=== PATIENT | female | born 1955 | race Caucasian/White ===

== ENCOUNTER 2017-03-07 10:18 | Inpatient (IN) | payer MEDICARE, MEDICAID ==
[~2017-03-07] VITALS: Ht 167.6 cm; Wt 41.3 kg
[~2017-03-07 10:18] MED LIST: ALBUAER3 INH; B-1250TA PO; FURO40TA PO; HYDR-3580 PO; IPRA17I INH; MORP-44 PO; OMEP20TA93 PO; PULM180I INH; SPIR50TA PO; TRAM50TA PO; XIFA550T4 PO
[2017-03-07] MEDS ORDERED: CHLORHEXIDINE GLUCONATE 2 % 1 PACK (2 CLOTHS) TOPICAL PRN (11:15)
[2017-03-07] MEDS ORDERED: LACTATED RINGER'S 1000 ML IV PRN (11:15)
[2017-03-07] MEDS ORDERED: METOPROLOL TARTRATE 25 MG TAB PO PRN (11:15)
[2017-03-07] MEDS ORDERED: SODIUM CHLORID 0.9% 500 ML IV PRN (11:15)
[2017-03-07] MEDS ORDERED: CHLORHEXIDINE GLUCONATE 4% SOLN 120 ML BTL TOPICAL SCH (11:30)
[2017-03-07] MEDS ORDERED: ceFAZolin 2 GM PREMIX 50 ML IV SCH (11:30)
[2017-03-07 11:38] LABS: BLOOD, URINE NEG (NEG); GLUCOSE,URINE NEG (NEG); KETONE, URINE 10 mg/dL (NEG); MUCUS URINE FEW /lpf (OCC); NITRITE,URINE NEG (NEG); PH, URINE 6.5 (5.0-8.5); URINE COLOR YELLOW (YELLW/STRAW); URINE LEUKOCYTE ESTERASE NEG (NEG)
[2017-03-07 11:40] LABS: AUTOMATED NEUTROPHIL # 1.9 TH/MM3 (1.8-7.7); BASOPHIL # 0.1 TH/MM3 (0-0.2); BASOPHIL % 1.7 % (0.0-2.0); EOSINOPHIL # 0.1 TH/MM3 (0-0.4); EOSINOPHIL % 2.5 % (0.0-4.0); HEMATOCRIT 29.2 % (35.0-46.0); HEMOGLOBIN 8.8 GM/DL (11.6-15.3); LYMPH % 28.1 % (9.0-44.0); MEAN CELL VOLUME 70.5 FL (80.0-100.0); MEAN CORPUSCULAR HEMOGLOBIN 21.3 PG (27.0-34.0); MEAN CORPUSCULAR HGB CONC 30.1 % (32.0-36.0); MEAN PLATELET VOLUME 8.8 FL (7.0-11.0); MONO % 13.9 % (0.0-8.0); MONOCYTE # 0.5 TH/MM3 (0-0.9); NEUT % 53.8 % (16.0-70.0); PLATELET COUNT 145 TH/MM3 (150-450); RED BLOOD COUNT 4.14 MIL/MM3 (4.00-5.30); WHITE BLOOD COUNT 3.5 TH/MM3 (4.0-11.0)
[2017-03-07 11:44] LABS: BILIRUBIN, URINE NEG (NEG)
[2017-03-07 11:48] LABS: INTERNATIONAL NORMALIZED RATIO 1.3 RATIO; PROTHROMBIN TIME - PATIENT 12.7 SEC (9.8-11.6)
[2017-03-07] MEDS ORDERED: MORP1TAB24 PO (11:49)
--- NOTE | 2017-03-07 11:54 | RADRPT ---
EXAM DATE/TIME: 03/07/2017 11:00 [facility] COMPARISON: CHEST SINGLE AP, August 02, 2012, 12:59. INDICATIONS : Evaluate for pneumonia, pneumothorax or communible disease Hip surgery MEDICAL HISTORY : Chronic obstructive pulmonary disease. SURGICAL HISTORY : None. ENCOUNTER: Initial ACUITY: 1 day PAIN SCORE: 0/10 LOCATION: Bilateral chest FINDINGS: A single view of the chest demonstrates the lungs to be symmetrically aerated without evidence of mas s, infiltrate or effusion. The cardiomediastinal contours are unremarkable. Osseous structures are intact. CONCLUSION: No acute disease. Dwayne Armas MD on March 07, 2017 at 11:51 Board Certified Radiologist. This report was verified electronically.
[2017-03-07] MEDS ORDERED: EXPAREL PERI-ARTICULAR INJECTION (TOTAL VOL. 60 ML) P-ARTICULR SCH ×2 (12:00)
[2017-03-07] MEDS ORDERED: TRANEXAMIC ACID 1 GM PRIOR TO PROCEDURE IV SCH ×2 (12:00)
--- NOTE | 2017-03-07 12:05 | RADRPT ---
EXAM DATE/TIME: 03/07/2017 11:24 [facility] COMPARISON: No previous studies available for comparison. INDICATIONS : Bilateral leg swelling. MEDICAL HISTORY : Congestive heart failure. Hypercholesterolemia. Hepatitis. HTN. COPD. Asthma. GERD. Ectopic . Herniated disc. Cirrhosis. Shingles. Depression. Tobacco use. SURGICAL HISTORY : Hysterectomy. Bilateral cataracts. Lumbar fusion L3-5. Left breast mass removal. Lumbar discectomy. ENCOUNTER: Initial ACUITY: 4 - 6 days PAIN SCORE: 9/10 LOCATION: Bilateral leg. TECHNIQUE: Venous ultrasound of the left and right leg was performed from the inguinal ligament to the proximal calf. Real-time, color Doppler and spectral tracing, compression and augmentation techniques were us ed. FINDINGS: RIGHT LEG: There is normal compressibility of the deep venous system from the inguinal region to the proximal ca lf. No echogenic clot is seen in the lumen of the common femoral, femoral, popliteal, and posterior tibial veins. There is a normal response of the venous system to proximal and distal augmentation an d respiration. LEFT LEG: There is normal compressibility of the deep venous system from the inguinal region to the proximal ca lf. No echogenic clot is seen in the lumen of the common femoral, femoral, popliteal, and posterior tibial veins. There is a normal response of the venous system to proximal and distal augmentation an d respiration. CONCLUSION: No evidence of deep venous thrombosis. Dwayne Armas MD on March 07, 2017 at 12:02 Board Certified Radiologist. This report was verified electronically.
--- NOTE | 2017-03-07 13:38 | PD.ORT.PN ---
Subjective Subjective Remarks worsening bilateral pitting edema Objective Vitals Vital Signs Date Time Temp Pulse Resp B/P (MAP) Pulse Ox O2 Delivery O2 Flow Rate FiO2 03/07/17 11:17 98.4 95 22 126/74 (91) 100 Result Diagram: 03/07/17 1125 Other Results Laboratory Tests Test 03/07/17 11:25 Prothromb Time International Ratio 1.3 RATIO Prothrombin Time 12.7 SEC (9.8-11.6) Imaging Last 24 hours Impressions Lower Extremity Ultrasound 03/07/17 1108 Signed Impressions: Service Date/Time: February 11:24 - CONCLUSION: No evidence of deep venous thrombosis. Dwayne Armas MD Chest X-Ray 03/07/17 1047 Signed Impressions: Service Date/Time: February 11:00 - CONCLUSION: No acute disease. Dwayne Armas MD Objective Remarks aaox3 labored breating on O2 NC nad BLE: nvi. bilateral pitting edema from the knee distally with areas of erythema. left hip wound healed. Assessment & Plan Assessment and Plan planned hip revision arthroplasty postpone by anesthesia. patient in mild respiratory distress on Oxygen, h/o COPD and liver cirrhosis. h/ o chronic morphine use. worsening pedal edema and respiratory function admit for medical optimization consult to pulmonary and hospitalist OR when cleared Alf Webster Jr., MD Mar 07, 2017 13:38
[2017-03-07] MEDS ORDERED: ONDANSETRON HCL 4 MG/2 ML VIAL IV PUSH PRN (13:45)
[2017-03-07] MEDS ORDERED: diphenhydrAMINE HCL 50 MG/ML VIAL IV PUSH PRN (13:45)
[2017-03-07] MEDS ORDERED: NALOXONE HCL 0.4 MG/ML AMP IV PUSH PRN (13:45)
[2017-03-07] MEDS ORDERED: ZOLPIDEM TARTRATE 5 MG TAB PO PRN (13:45)
[2017-03-07] MEDS ORDERED: ALBUTEROL SULFATE 90 MCG/ACT HFA 8 GM INHALER INH PRN (13:45)
[2017-03-07] MEDS ORDERED: MORPHINE SULFATE 30 MG PO PRN (13:45)
[2017-03-07] MEDS ORDERED: diphenhydrAMINE HCL 25 MG CAP PO PRN (13:45)
[2017-03-07] MEDS ORDERED: IPRATROPIUM BROMIDE 17 MCG/ACT 12.9 GM INHALER INH PRN (13:45)
[2017-03-07] MEDS ORDERED: MORPHINE SULFATE 30 MG CONTROLLED RELEASE TAB PO PRN (14:30)
[2017-03-07] MEDS: ACETAMINOPHEN/HYDROcodone 325 MG/5 MG TAB PO PRN ×2 (14:53→19:25)
[2017-03-07] MEDS ORDERED: TRANEXAMIC ACID 1 GM POST-OP IV SCH ×2 (15:00)
[2017-03-07 15:47] VITALS: BP 106/69; PULSE 93; RESP 19; TEMP 97.7; O2SAT 100
[2017-03-07] MEDS ORDERED: RESP: ALBUTEROL 2.5 MG/3 ML NEB (PRN) INH (16:45)
[2017-03-07] MEDS ORDERED: methylPREDNISolone SOD SUCC 125 MG/2 ML VIAL IV PUSH ONE (16:45)
--- NOTE | 2017-03-07 16:55 | PD.CONS ---
HPI Service [facility] Hospitalists Consult Requested By Ortho Reason for Consult Preop Medical optimization for COPD and lower extremity edema due to heart failure Primary Care Physician Shekhar Gordillo M.D. Diagnoses: History of Present Illness 61 years old female with history of liver failure last liver cirrhosis admitted for revision on hip surgery, patient was found to have +3 edema in the lower extremity, mild to moderate respiratory distress in the preop so surgery canceled in medical hospitalist were consulted for preoperative optimization, patient admitted continuing smoking a pack a day, with continuing short of breath greenish phlegm and cough, to me she denied being noncompliant with her eyes however I found at the bedside to back off snacks which contain 40 mg total of sodium, I extensively explained to her the need to eliminate sodium in her diet. She denied any chest pain abdominal pain nausea vomiting diarrhea or constipation, she all of with liver specialist in [place], she is not on any transplant list yet. No fever or chills, lower extremity ultrasound has been done and ruled out DVT, chest x-ray with no lung congestion Review of Systems All systems reviewed and was positive for what is mentioned in history of present illness otherwise negative Past Family Social History Allergies: Coded Allergies: MRI PRECAUTION (Verified Allergy, Severe, DIFF BREATHING, SWELLING TO ROOF OF MOUTH, 03/07/17) diatrizoate meglumine (Unverified Allergy, Severe, RASH, 03/07/17) gadobenic acid (Unverified Allergy, Severe, RASH, 03/07/17) gadodiamide (Unverified Allergy, Severe, RASH, 03/07/17) gadoteridol (Unverified Allergy, Severe, RASH, 03/07/17) iodixanol (Unverified Allergy, Severe, RASH, 03/07/17) iohexol (Unverified Allergy, Severe, RASH, 03/07/17) Past Medical History Liver cirrhosis Anemia COPD Actively smoker Past Surgical History Denied having previous surgery Family History Review with the patient,not aware of significant medical history runs in his family Social History Smoke one pack per day for 30 years denies alcohol abuse Physical Exam Vital Signs Vital Signs Date Time Temp Pulse Resp B/P (MAP) Pulse Ox O2 Delivery O2 Flow Rate FiO2 03/07/17 15:47 97.7 93 19 106/69 (81) 100 03/07/17 15:15 Nasal Cannula 3.00 03/07/17 11:17 98.4 95 22 126/74 (91) 100 Physical Exam GENERAL: This is a well-nourished, well-developed patient, in no apparent distress. SKIN: No rashes, warm and dry HEAD: Atraumatic. Normocephalic. EYES: Pupils equal round and reactive. Extraocular motions intact. No scleral icterus. ENT: Nose without bleeding, or drainage, Airway patent. NECK: Trachea midline. Supple CARDIOVASCULAR: Regular rate and rhythm without murmurs, gallops, or rubs. RESPIRATORY: Fair air entry bilaterally. No wheezes, rales, or rhonchi. GASTROINTESTINAL: Abdomen soft, non-tender, nondistended. Positive bowel sounds MUSCULOSKELETAL: Extremities without clubbing, cyanosis, +3 edema. Pedal pulses appreciated NEUROLOGICAL: Awake and alert. Moves all extremity. Normal speech.no focal neurological deficit Laboratory Laboratory Tests Test 03/07/17 11:15 03/07/17 11:25 Urine Color YELLOW Urine Turbidity CLEAR Urine pH 6.5 Urine Specific [place] 1.020 Urine Protein 30 Urine Glucose (UA) NEG Urine Ketones 10 Urine Occult Blood NEG Urine Nitrite NEG Urine Bilirubin NEG Urine Urobilinogen 8.0 Urine Leukocyte Esterase NEG Urine RBC LESS THAN 1 Urine WBC 1 Urine Mucus FEW Microscopic Urinalysis Comment CATH-CULT NOT IND White Blood Count 3.5 Red Blood Count 4.14 Hemoglobin 8.8 Hematocrit 29.2 Mean Corpuscular Volume 70.5 Mean Corpuscular Hemoglobin 21.3 Mean Corpuscular Hemoglobin Concent 30.1 Red Cell Distribution Width 22.0 Platelet Count 145 Mean Platelet Volume 8.8 Neutrophils (%) (Auto) 53.8 Lymphocytes (%) (Auto) 28.1 Monocytes (%) (Auto) 13.9 Eosinophils (%) (Auto) 2.5 Basophils (%) (Auto) 1.7 Neutrophils # (Auto) 1.9 Lymphocytes # (Auto) 1.0 Monocytes # (Auto) 0.5 Eosinophils # (Auto) 0.1 Basophils # (Auto) 0.1 CBC Comment DIFF FINAL Differential Comment Prothrombin Time 12.7 Prothromb Time International Ratio 1.3 Result Diagram: 03/07/17 1125 Imaging Last Impressions Lower Extremity Ultrasound 03/07/17 1108 Signed Impressions: Service Date/Time: February 11:24 - CONCLUSION: No evidence of deep venous thrombosis. Dwayne Armas MD Chest X-Ray 03/07/17 1047 Signed Impressions: Service Date/Time: February 11:00 - CONCLUSION: No acute disease. Dwayne Armas MD Assessment and Plan Assessment and Plan Patient admitted for orthopedic surgery however every 2 bilateral lower extremity edema due to heart failure medical service consulted for optimization COPD exacerbation Lower extremity edema due to heart failure Liver cirrhosis Hypochromic microcytic anemia Thrombocytopenia Mostly component of noncompliance DVTprophylaxis Recommendation We'll start providing oxygen, DuoNeb, Solu-Medrol Check sputum culture, will start Zithromax Agree with pulmonary consult Extensive counseling about smoking cessation has been provided We'll switch to Lasix by mouth to iv 40 mg twice a day, after drawing stat BMP now Continue Aldactone, rifaximin, no salt diet, patient advised extensively about this Consider GI consultation if needed Monitor BRADY Depending on albumin and protein level patient may benefit from albumin infusion with Lasix to improve third spacing Monitor CBC for thrombocytopenia, and anemia, iron pannel We'll hold aspirin due to plan of surgery, resume once cleared by surgery SCD for DVT prophylaxis we'll hold on chemical due to thrombocytopenia Discussed Condition With Patient and her friend whom she agreed on staying in the room Greta Fung MD Mar 07, 2017 16:55
[2017-03-07] MEDS ORDERED: AZITHROMYCIN INJ 500 MG in SODIUM CHLOR 0.9% 250 ML INJ 250 ML IV ONE (17:00)
[2017-03-07 17:12] VITALS: O2SAT 96
[2017-03-07] MEDS: RESP: ALBUTEROL 2.5 MG/IPRATROPIUM 0.5 MG NEB (SCH) INH ×2 (17:12→22:15)
[2017-03-07] MEDS: NICOTINE 14 MG/24 HR PATCH T-DERMAL SCH (18:03)
[2017-03-07] MEDS: FUROSEMIDE 40 MG/4 ML VIAL IV PUSH SCH (18:04)
[2017-03-07] MEDS ORDERED: MORPHINE SULFATE 15 MG CONTROLLED RELEASE TAB PO PRN (19:15)
[2017-03-07 20:25] VITALS: BP 99/62; PULSE 94; RESP 17; TEMP 96.7; O2SAT 96
[2017-03-07] MEDS ORDERED: BUDESONIDE 180 MCG INH SCH (21:00)
[2017-03-07] MEDS: SODIUM CHLORIDE 0.9% FLUSH 10 ML FLUSH IV FLUSH SCH (21:00)
[2017-03-07] MEDS: RIFAXIMIN 550 MG TAB PO SCH (21:27)
[2017-03-07] MEDS: DOCUSATE SODIUM 100 MG CAP PO SCH (21:28)
[2017-03-07] MEDS: BUDESONIDE-FORMOTEROL 160/4.5 MCG INHALER INH SCH (21:28)
--- NOTE | 2017-03-07 22:06 | RADRPT ---
EXAM DATE/TIME: 03/07/2017 21:47 [facility] COMPARISON: Report only CT ABDOMEN & PELVIS W/O CONTRAST, September 30, 2011, 16:39. INDICATIONS : Short of breath. RADIATION DOSE: 5.97 CTDIvol (mGy) MEDICAL HISTORY : Chronic obstructive pulmonary disease. SURGICAL HISTORY : None. ENCOUNTER: Initial ACUITY: 1 day PAIN SCALE: 0/10 LOCATION: chest TECHNIQUE: Volumetric scanning of the chest was performed. Using automated exposure control and adjustment of t he mA and/or kV according to patient size, radiation dose was kept as low as reasonably achievable to obtain optimal diagnostic quality images. DICOM format image data is available electronically for r eview and comparison. Follow-up recommendations for detected pulmonary nodules are based at a minimum on nodule size and pa tient risk factors according to Fleischner Society Guidelines. FINDINGS: LUNGS: There is mild emphysema. Mild atelectasis and/or scarring seen, mostly the bases. There is mild and p robably chronic thickening of the interlobular septa anteriorly of both mid lungs. An irregular nodul ar opacity measuring approximately 5 x 9 mm in size is seen in the right middle lobe on series 3 imag e 45. There is no pleural effusion. No pneumothorax. PLEURAE: There is no pleural thickening or pleural effusion. MEDIASTINUM: The heart and great vessels demonstrate no acute abnormality. There is no mediastinal or hilar lymph adenopathy. AXILLAE: Within normal limits. No lymphadenopathy. MUSCULOSKELETAL: Within normal limits for patient age. MISCELLANEOUS: Upper abdomen only partly included on this study. Small and nodular liver with small to moderate asci corey noted. The visualized portions of the spleen appear enlarged. CONCLUSION: 1. Mild fibromemphysematous changes with mild bibasilar atelectasis and/or scarring. 2. Focal mildly nodular opacity of the right middle lobe, probably a localized area of scarring. A fo llowup noncontrast chest CT is suggested in 6 months. 3. Partly seen in the upper abdomen is evidence of cirrhosis, small to moderate ascites and splenomeg ewelina. These findings have been reported back in 2012. Shekhar Ward MD on March 07, 2017 at 21:59 Board Certified Radiologist. This report was verified electronically.
[2017-03-08] VITALS (9 sets, daily range): BP systolic 99–106; BP diastolic 61–76; PULSE 85–106; RESP 17–19; TEMP 97.4–98.1; O2SAT 93–98
[2017-03-08 01:20] LABS: % SATURATION IRON PROFILE 3.3 % (20-50); ALBUMIN 2.9 GM/DL (3.4-5.0); ALKALINE PHOSPHATASE 111 U/L (45-117); ALT (GPT) 11 U/L (10-53); AST (GOT) 16 U/L (15-37); BICARBONATE 33.4 MEQ/L (21.0-32.0); BLOOD UREA NITROGEN 11 MG/DL (7-18); CALCIUM 7.7 MG/DL (8.5-10.1); CHLORIDE 99 MEQ/L (98-107); CREATININE 0.49 MG/DL (0.50-1.00); FERRITIN 14 NG/ML (8-252); GLOMERULAR FILTRATION RATE 129 ML/MIN (>89); GLUCOSE,RANDOM 252 MG/DL (74-106); IRON (FE) 11 MCG/DL (50-170); MAGNESIUM 1.5 MG/DL (1.5-2.5); PHOSPHORUS 3.1 MG/DL (2.5-4.9); SODIUM (NA) 140 MEQ/L (136-145); TOTAL BILIRUBIN ADULT 0.4 MG/DL (0.2-1.0); TOTAL IRON BINDING CAPACITY 329 MCG/DL (250-450); TOTAL PROTEIN 6.2 GM/DL (6.4-8.2)
[2017-03-08] MEDS ORDERED: POTASSIUM CHLORIDE 25 MEQ EFFERVESCENT TAB PO ONE (01:45)
[2017-03-08] MEDS: POTASSIUM CHLOR 10 MEQ PREMIX 100 ML IV SCH ×2 (02:01→04:26)
[2017-03-08] MEDS: RESP: ALBUTEROL 2.5 MG/IPRATROPIUM 0.5 MG NEB (SCH) INH ×4 (03:34→22:00)
[2017-03-08] MEDS: ACETAMINOPHEN/HYDROcodone 325 MG/5 MG TAB PO PRN ×2 (03:56→08:06)
[2017-03-08] MEDS: methylPREDNISolone SOD SUCC 125 MG/2 ML VIAL IVP SCH ×3 (07:50→23:25)
[2017-03-08] MEDS: FUROSEMIDE 40 MG/4 ML VIAL IV PUSH SCH ×2 (07:50→18:00)
[2017-03-08] MEDS: RIFAXIMIN 550 MG TAB PO SCH ×2 (07:51→21:37)
[2017-03-08] MEDS: PANTOPRAZOLE SOD 20 MG DELAYED RELEASE TAB PO SCH (07:51)
[2017-03-08] MEDS: SPIRONOLACTONE 50 MG TAB PO SCH (07:51)
[2017-03-08] MEDS: AZITHROMYCIN INJ 250 MG in SODIUM CHLOR 0.9% 250 ML INJ 250 ML IV SCH (07:51)
[2017-03-08] MEDS: DOCUSATE SODIUM 100 MG CAP PO SCH ×2 (07:52→21:37)
[2017-03-08] MEDS: THIAMINE HCL 100 MG TAB PO SCH (07:52)
[2017-03-08] MEDS: BUDESONIDE-FORMOTEROL 160/4.5 MCG INHALER INH SCH ×2 (07:57→21:36)
[2017-03-08] MEDS: NICOTINE 14 MG/24 HR PATCH T-DERMAL SCH (07:57)
[2017-03-08] MEDS: REMOVE OLD PATCH T-DERMAL SCH (08:00)
[2017-03-08] MEDS: SODIUM CHLORIDE 0.9% FLUSH 10 ML FLUSH IV FLUSH SCH ×2 (08:00→21:37)
[2017-03-08 08:02] LABS: AUTOMATED NEUTROPHIL # 0.9 TH/MM3 (1.8-7.7); BASOPHIL % 0.4 % (0.0-2.0); HEMATOCRIT 28.6 % (35.0-46.0); HEMOGLOBIN 8.8 GM/DL (11.6-15.3); LYMPH % 20.8 % (9.0-44.0); LYMPHOCYTE # 0.3 TH/MM3 (1.0-4.8); MEAN CORPUSCULAR HEMOGLOBIN 21.5 PG (27.0-34.0); MEAN CORPUSCULAR HGB CONC 30.8 % (32.0-36.0); MEAN PLATELET VOLUME 9.1 FL (7.0-11.0); MONO % 5.3 % (0.0-8.0); MONOCYTE # 0.1 TH/MM3 (0-0.9); NEUT % 73.5 % (16.0-70.0); PLATELET COUNT 126 TH/MM3 (150-450); RED BLOOD COUNT 4.09 MIL/MM3 (4.00-5.30); RED CELL DISTRIBUTION WIDTH 22.2 % (11.6-17.2); WHITE BLOOD COUNT 1.3 TH/MM3 (4.0-11.0)
[2017-03-08] MEDS ORDERED: FUROSEMIDE 40 MG TAB PO SCH (09:00)
[2017-03-08 09:20] LABS: BANDS 15 % (0-6); LYMPHOCYTES 17 % (9-44); MONOCYTES 4 % (0-8); POLYS (SEG NEUTROPHILS) 64 % (16-70)
[2017-03-08 09:21] LABS: OVALOCYTES 1+ (NORMAL)
[2017-03-08 09:23] LABS: ACANTHOCYTES OCC (NORMAL)
--- NOTE | 2017-03-08 09:54 | HHI.PR ---
Subjective Remarks Follow-up COPD exacerbation, lower extremity edema. The patient states that her breathing is a little better today. Swelling has started to improve. She denies chest pain, nausea, vomiting. Objective Vitals Vital Signs Date Time Temp Pulse Resp B/P (MAP) Pulse Ox O2 Delivery O2 Flow Rate FiO2 03/08/17 07:41 97.9 85 19 99/65 (76) 98 03/08/17 04:15 97.4 88 18 106/76 (86) 98 03/08/17 03:36 96 Nasal Cannula 3.00 03/08/17 00:20 98.1 98 17 100/61 (74) 97 03/07/17 20:25 96.7 94 17 99/62 (74) 96 03/07/17 20:00 96 Nasal Cannula 3.00 03/07/17 17:12 96 Nasal Cannula 4.00 03/07/17 15:47 97.7 93 19 106/69 (81) 100 03/07/17 15:15 Nasal Cannula 3.00 03/07/17 11:17 98.4 95 22 126/74 (91) 100 I/O 03/07/17 03/07/17 03/07/17 03/08/17 03/08/17 03/08/17 07:00 15:00 23:00 07:00 15:00 23:00 Intake Total 490 ml 440 ml Balance 490 ml 440 ml Intake Oral 240 ml 240 ml IV Total 250 ml 200 ml # Voids 2 2 # Bowel Movements 0 0 Result Diagram: 03/08/17 0655 03/08/17 0019 Imaging Last Impressions Chest CT 03/07/172044 Signed Impressions: Service Date/Time: February 21:47 - CONCLUSION: 1. Mild fibromemphysematous changes with mild bibasilar atelectasis and/or scarring. 2. Focal mildly nodular opacity of the right middle lobe, probably a localized area of scarring. A followup noncontrast chest CT is suggested in 6 months. 3. Partly seen in the upper abdomen is evidence of cirrhosis, small to moderate ascites and splenomegaly. These findings have been reported back in 2012. Shekhar Ward MD Lower Extremity Ultrasound 03/07/17 1108 Signed Impressions: Service Date/Time: February 11:24 - CONCLUSION: No evidence of deep venous thrombosis. Dwayne Armas MD Chest X-Ray 03/07/17 1047 Signed Impressions: Service Date/Time: February 11:00 - CONCLUSION: No acute disease. Dwayne Armas MD Objective Remarks General: Thin female in no acute distress. Appears older than stated age. Heart: Regular rate and rhythm. No murmur. Lungs: Diffuse wheeze. Breathing is nonlabored. Abdomen: Soft, nontender, nondistended. Extremities: 2+ bilateral lower extremity edema. Psych: Alert and oriented. Procedures None Urinary Catheter: No Vascular Central Line Catheter: No A/P Assessment and Plan 1. COPD exacerbation: Continue supplemental oxygen, bronchodilators, Solu- Medrol. Continue antibiotics. Sputum culture ordered. Pulmonology consult is pending. 2. Congestive heart failure: Continue diuresis. Patient counseled regarding low sodium diet. No echocardiogram report available. Check 2D echo. 3. Hypochromic microcytic anemia, thrombocytopenia, leukopenia: Monitor labs. Consult hematology. 4. Hypokalemia: Patient received IV potassium supplementation this morning. Repeat labs are pending. 5. DVT prophylaxis: SCDs. Avoid chemical prophylaxis secondary to thrombocytopenia. 6. Osteoarthritis of the hip: Planned for revision of arthroplasty. Surgery on hold due to respiratory status, lower extremity edema. Avtar Camarena MD Mar 08, 2017 09:54
--- NOTE | 2017-03-08 10:03 | MB ---
cc: CARLOS ALBERTO SOUZA DATE OF CONSULTATION: 03/07/2017 REASON FOR CONSULTATION: Chronic obstructive pulmonary disease. HISTORY OF PRESENT ILLNESS: This is a 61-year-old female with a past history of cirrhosis of the liver and history for left hip fracture with the current problems of the left hip requiring revision of her hip replacement surgery. She was admitted for surgery this week the patient however was in the holding area for surgery and there was a moderate respiratory distress and was seen by the hospitalist and was found to have significant leg edema, significant wheezing and hypoxemia and thus was advised to further evaluation and preoperative optimization of her pulmonary status and thus was admitted to telemetry. The patient has been a smoker for over 40 years continues to smoke a pack of cigarettes a day, and was coughing up greenish yellow mucous and was hypoxic and thus was hypoxic and thus has been placed on O2 at 2 liters. Denies any calf muscle pains. A Doppler study of the leg showed no evidence of clot. The patient has had no hemoptysis. She does cough up some mucus and has no fever or chills. PAST HISTORY 1. Has included severe COPD with emphysema. 2. History of anemia. 3. Cirrhosis of the liver. 4. She has had hip surgery in the past 5. has had recurrent dislocations of the hip now requiring revision no history of hypertension. 6. Has had pneumonia in the past. HABITS The patient smokes one-pack per day has done so for over 35 years. She was a heavy alcohol drinker in the past but not recently. ALLERGIES IVP DYE GADODIAMIDE IODIXANOL IOHEXOL DIATRIZOATE MEGLUMINE FAMILY HISTORY: Family history was essentially noncontributory. REVIEW OF SYSTEMS The patient has lost weight. She has leg swelling. She has trouble ambulating. She has wheezing, congestion, cough, yellow sputum. No fever. She has epigastric distress and reflux. She has no urinary symptoms. She has some flank pains and back pain. Denies any skin lesions. The other system review is negative. PHYSICAL EXAMINATION IN GENERAL: This thinly built middle-aged white female, pale, alert, and mom mildly dyspneic at rest. VITAL SIGNS: Blood pressure 112/60, pulse 90, respirations 22, temperature 92. HEAD, EYES, EARS, NOSE, AND THROAT: Head normocephalic. Pupils are reactive and equal. Tongue is dry. Throat is injected. Nasal mucosae masses. NECK: Supple. No bruits or thyroid enlargement or lymphadenopathy. CHEST: Equal movements in Miller expiratory wheezes with scattered throughout both lung martinez. Prolonged expirations with crackles of the right base. CARDIAC: Heart sounds are regular S1-S2. No murmur. No S3. ABDOMEN: The abdomen is soft, non sounds. Soft with no organomegaly. There is mild tenderness in the upper abdomen and bowel sounds active. EXTREMITIES: Edema 1+ of both legs redness of the skin of the lower extremities diminished peripheral pulses. No calf tenderness in. Reflexes are 1+. The patient has some restriction to the left leg and hip peripheral pulses are not well felt. NEUROLOGIC: The patient is alert and oriented and cooperative. SKIN: Skin was dry and scaly. IMPRESSION 1. COPD with acute exacerbation 2. He has degenerative arthritis of the left hip. 3. Leg edema. 4. Microcytic anemia. 5. Cirrhosis of the liver. 6. Thrombocytopenia. PLAN The patient has been counseled about quitting cigarette smoking. She was advised to nebulize DuoNeb solution q.i.d. we will continue Solu-Medrol 40 mg IV q.8 h and Zithromax 500 mg IV was started. Continue with Aldactone 25 mg b.i.d. and Lasix 40 mg b.i.d. Nutritional status needs to be improved. The patient was placed on 2 liters of oxygen. Blood gases to be done at bedside pulmonary function study will be obtained to be placed on Symbicort 160/4.5 mcg 2 puffs twice a day and I will follow the case with you Dr. Hernandes thank you for this consultation. MD ROSALEE Vallecillo/juan pablo /7:04 AM /9:22 AM
[2017-03-08] MEDS: MORPHINE SULFATE 15 MG CONTROLLED RELEASE TAB PO SCH ×3 (11:51→23:25)
[2017-03-08 12:52] LABS: BICARBONATE 33.9 MEQ/L (21.0-32.0); CALCIUM 8.1 MG/DL (8.5-10.1); CREATININE 0.67 MG/DL (0.50-1.00)
[2017-03-08] MEDS ORDERED: LORazepam 0.5 MG TAB PO ONE (14:45)
--- NOTE | 2017-03-08 15:05 | ECHRPT ---
Indication: lower extremity edema CONCLUSIONS Normal left ventricular size. Wall thickness is normal. The left ventricular systolic function is low normal with an estimated ejection fraction in the rang e of 50- 55%. Mitral annular calcification is present. Mild mitral valve regurgitation. The pulmonary valve is not well visualized. BP: 99 / 65 HR: 75 Rhythm: MEASUREMENTS (Male / Female) Normal Values Technical Quality:Good 2D ECHO LV Diastolic Diameter PLAX 4.4 cm 4.2 - 5.9 / 3.9 - 5.3 cm LV Systolic Diameter PLAX 3.7 cm IVS Diastolic Thickness 0.8 cm 0.6 - 1.0 / 0.6 - 0.9 cm LVPW Diastolic Thickness 0.6 cm 0.6 - 1.0 / 0.6 - 0.9 cm LV Relative Wall Thickness 0.3 RV Internal Dim ED PLAX 1.7 cm LA Systolic Diameter LX 3.4 cm 3.0 - 4.0 / 2.7 - 3.8 cm DOPPLER Mitral E Point Velocity 61.2 cm/s Mitral A Point Velocity 88.4 cm/s Mitral E to A Ratio 0.7 TR Peak Velocity 248.0 cm/s TR Peak Gradient 24.6 mmHg FINDINGS LEFT VENTRICLE Normal left ventricular size. Wall thickness is normal. The left ventricular systolic function is low normal with an estimated ejection fraction in the rang e of 50- 55%. RIGHT VENTRICLE Normal right ventricular size and systolic function. LEFT ATRIUM The left atrial size is normal. RIGHT ATRIUM The right atrial size is normal. ATRIAL SEPTUM Normal atrial septal thickness without atrial level shunting by limited color doppler interrogation. AORTA The aortic root and proximal ascending aorta are normal in size on limited imaging. MITRAL VALVE Mitral annular calcification is present. Mild mitral valve regurgitation. AORTIC VALVE Trileaflet aortic valve. No aortic valve stenosis or regurgitation. TRICUSPID VALVE Structurally normal tricuspid valve. No tricuspid valve stenosis or regurgitation. PULMONARY VALVE The pulmonary valve is not well visualized. VESSELS The inferior vena cava is normal in size. PERICARDIUM No pericardial effusion. Parveen Bui MD, FACC (Electronically Signed) Final Date:08 March 2017 15:04
--- NOTE | 2017-03-08 16:22 | EKG ---
Date Performed: 03/07/2017 Time Performed: 11:33:17 PTAGE: 61 years EKG: Sinus rhythm POSSIBLE RIGHT ATRIAL ENLARGEMENT BORDERLINE ECG PREVIOUS TRACING : 05/18/2012 10.51 Since previous tracing, no significant change noted DOCTOR: Sae Marquez Interpretating Date/Time 03/08/2017 16:21:49
--- NOTE | 2017-03-08 19:28 | HHI.PR ---
Subjective Remarks Feels better. Still wheezing. On O2 . Wants more pain Meds. Objective Vital Signs Date Time Temp Pulse Resp B/P (MAP) Pulse Ox O2 Delivery O2 Flow Rate FiO2 03/08/17 16:24 96 Nasal Cannula 3.00 03/08/17 15:35 97.9 106 19 102/61 (75) 98 03/08/17 11:30 97.8 89 19 104/67 (79) 95 03/08/17 10:57 97 Nasal Cannula 3.00 03/08/17 07:41 97.9 85 19 99/65 (76) 98 03/08/17 04:15 97.4 88 18 106/76 (86) 98 03/08/17 03:36 96 Nasal Cannula 3.00 03/08/17 00:20 98.1 98 17 100/61 (74) 97 03/07/17 20:25 96.7 94 17 99/62 (74) 96 03/07/17 20:00 96 Nasal Cannula 3.00 I/O 03/07/17 03/07/17 03/07/17 03/08/17 03/08/17 03/08/17 07:00 15:00 23:00 07:00 15:00 23:00 Intake Total 490 ml 440 ml 500 ml Balance 490 ml 440 ml 500 ml Intake Oral 240 ml 240 ml 500 ml IV Total 250 ml 200 ml # Voids 2 2 4 # Bowel Movements 0 0 1 Result Diagram: 03/08/17 0655 03/08/17 1210 Objective Remarks IN GENERAL: This thinly built middle-aged white female, pale, alert, and mom mildly dyspneic at rest. HEAD, EYES, EARS, NOSE, AND THROAT: Head normocephalic. Pupils are reactive and equal. Tongue is dry. Throat is injected. Neck no mass or lymphadenopathy. CHEST: Equal movements with expiratory wheezes scattered throughout both lung martinez. Prolonged expirations with crackles at the right base. CARDIAC: Heart sounds are regular S1-S2. No murmur. No S3. ABDOMEN: The abdomen is soft, non sounds. Soft with no organomegaly. There is mild tenderness in the upper abdomen and bowel sounds active. EXTREMITIES: Edema 1+ of both legs redness of the skin of the lower extremities diminished peripheral pulses. No calf tenderness in. Reflexes are 1+. The patient has some restriction to the left leg and hip peripheral pulses are not well felt. NEUROLOGIC: The patient is alert and oriented and cooperative. SKIN: Skin was dry and scaly. Assessment and Plan Assessment and Plan IMPRESSION 1. COPD with acute exacerbation 2. He has degenerative arthritis of the left hip. 3. Leg edema. 4. Microcytic anemia. 5. Cirrhosis of the liver. 6. Thrombocytopenia. Plan : 1. O2 at 2 L. 2. Cont Zithromax 500 mg daily. 3. Continue Duoneb Nebs qid. 4. Cont IS q2h, bedside 5. PFT and ABG. 6. Taper solumedrol to 40 mg bid. Tao Lozano MD Mar 08, 2017 19:28
--- NOTE | 2017-03-08 19:53 | PD.ORT.PN ---
Subjective Subjective Remarks Feeling better. Wants more pain Medicine. Objective Vitals Vital Signs Date Time Temp Pulse Resp B/P (MAP) Pulse Ox O2 Delivery O2 Flow Rate FiO2 03/08/17 16:24 96 Nasal Cannula 3.00 03/08/17 15:35 97.9 106 19 102/61 (75) 98 03/08/17 11:30 97.8 89 19 104/67 (79) 95 03/08/17 10:57 97 Nasal Cannula 3.00 03/08/17 07:41 97.9 85 19 99/65 (76) 98 03/08/17 04:15 97.4 88 18 106/76 (86) 98 03/08/17 03:36 96 Nasal Cannula 3.00 03/08/17 00:20 98.1 98 17 100/61 (74) 97 03/07/17 20:25 96.7 94 17 99/62 (74) 96 03/07/17 20:00 96 Nasal Cannula 3.00 I/O 03/07/17 03/07/17 03/07/17 03/08/17 03/08/17 03/08/17 07:00 15:00 23:00 07:00 15:00 23:00 Intake Total 490 ml 440 ml 500 ml Balance 490 ml 440 ml 500 ml Intake Oral 240 ml 240 ml 500 ml IV Total 250 ml 200 ml # Voids 2 2 4 # Bowel Movements 0 0 1 Result Diagram: 03/08/17 0655 03/08/17 1210 Imaging Last 24 hours Impressions Lower Extremity Ultrasound 03/07/17 1108 Signed Impressions: Service Date/Time: February 11:24 - CONCLUSION: No evidence of deep venous thrombosis. Dwayne Armas MD Chest X-Ray 03/07/17 1047 Signed Impressions: Service Date/Time: February 11:00 - CONCLUSION: No acute disease. Dwayne Armas MD Objective Remarks aaox3 labored breating on O2 NC nad BLE: nvi. bilateral pitting edema from the knee distally with areas of erythema. left hip wound healed. Assessment & Plan Assessment and Plan 1. COPD exacerbation 2. Congestive heart failure 3. Hypochromic microcytic anemia, thrombocytopenia, leukopenia 4. Hypokalemia 5. DVT prophylaxis: SCDs. Avoid chemical prophylaxis secondary to thrombocytopenia. Planned Left hip bipolar revision for recurrent dislocations. I appreciate the input of pulmonary and medical team in this patient's care plan OR likely saturday if cleared. Alf Webster Jr., MD Mar 08, 2017 19:52
[2017-03-09] VITALS (8 sets, daily range): BP systolic 99–116; BP diastolic 60–75; PULSE 81–108; RESP 17–20; TEMP 96.6–98.6; O2SAT 92–99
[2017-03-09] MEDS: RESP: ALBUTEROL 2.5 MG/IPRATROPIUM 0.5 MG NEB (SCH) INH ×4 (03:29→20:35)
[2017-03-09] MEDS: MORPHINE SULFATE 15 MG CONTROLLED RELEASE TAB PO SCH ×3 (05:20→17:47)
--- NOTE | 2017-03-09 07:21 | MB ---
cc: GERMAIN EDWARDS DATE OF CONSULTATION: 03/08/2017 REASON FOR CONSULTATION: Patient with a history of liver cirrhosis and thrombocytopenia now has pancytopenia. HISTORY OF PRESENT ILLNESS This is a 61-year-old female with a history of liver failure and liver cirrhosis secondary to alcohol abuse. She has a history of thrombocytopenia. She tells me that she is being seen by transplant team in [place]. She has completely quit alcohol. She also has a history of hepatitis C. She states that she was treated with Vivarin in the past. She thinks that she cleared the virus from her blood. She was admitted to the hospital for revision of hip surgery. On presentation she had 3+ edema and she was in moderate respiratory distress. Her surgery has been postponed. She continues to smoke cigarettes. She has been having cough with greenish phlegm. Currently she is being managed supportively for COPD exacerbation with DuoNeb's IV Solu-Medrol and Azithromax. Pulmonary consult has been placed. She is also getting diuretics including Lasix. She is also receiving Aldactone. GI has been consulted. I have been asked to evaluate this patient who has leukopenia with WBC of 1.3, ANC is 900, hemoglobin is 8.8, MCV 70, platelet count is 126. She was hypokalemic on admission. However, she has been given potassium supplementation. Her liver functions are normal, AST 16, ALT 11, albumin is 2.9, anemia studies were completed on admission and iron is low at 11, TIBC C29% saturation is very low at 3.3, ferritin is 14. She endorses extreme weakness. She has a appears very cachectic and thin. She has not had any fevers or chills, night sweats. Nose bleeds, gum bleeds, petechiae or bruising. No bright red blood per rectum. No melena, no hematuria. REVIEW OF SYSTEMS A comprehensive 14-point review of systems was completed which is negative except as described in the HPI. PAST MEDICAL HISTORY History of liver cirrhosis Anemia Thrombocytopenia COPD Tobacco abuse. PAST SURGICAL HISTORY None. FAMILY HISTORY: Family history was reviewed and it is noncontributory to this admission. SOCIAL HISTORY She continues to smoke cigarettes and 30 pack-year smoking history. She quit drinking many years ago. MEDICATIONS: Medications were reviewed in the EMR ALLERGIES She is allergic to multiple medications. These were reviewed in the EMR; DIATRIZOATE GADOBENIC ACID. IODIXANOL IOHEXOL PHYSICAL EXAMINATION VITAL SIGNS Blood pressure is 126/74, pulse in the 90s, temperature is 98.4, O2 sats are 100% on 2 liters nasal cannula. IN GENERAL: Chronically ill-appearing female who is quite cathectic, thin, she has peripheral wasting. HEAD, EYES, EARS, NOSE, AND THROAT: Pupils are equal, round, react to light. EOMI. No oral thrush or lesions. NECK: The neck is supple without JVD, no bruits. No lymphadenopathy. CHEST: Chest is clear to auscultation bilaterally. CARDIAC: S1-S2 regular rate and rhythm. ABDOMEN: Abdomen is soft, mild tenderness in the right upper quadrant. No ascites or fluid wave. Bowel sounds are present. EXTREMITIES: Changes of chronic venous stasis. No lower extremity edema. LABORATORY FINDINTGS: WBC 1.3, hemoglobin 8.8 and platelet count 126. Remaining labs were reviewed in the EMR IMAGING STUDIES CT of the chest was reviewed his shows edematous changes with by bibasilar atelectasis. There is a nodular opacity in the right middle lobe which appears to be scar tissue, a follow-up CT scan was suggested. Liver cirrhosis was visualized very small amount of ascites was noted with splenomegaly. Lower extremity ultrasound did not show any DVT. Chest x-ray Was reviewed in no acute disease. ASSESSMENT/PLAN This is a 61-year-old female who has a past medical history of tobacco abuse, alcohol abuse, liver cirrhosis, history of anemia and thrombocytopenia who was admitted to the hospital for revision of her orthopedic surgery. However she developed respiratory distress. She was found to be pancytopenic. I have been consulted to make further recommendations. 1. Leukopenia with ANC of 900. It is unclear what her baseline white blood cell count is however, upon review of the EMR she did have a normal white blood cell count on 03/09/2012. Her hemoglobin at that time was 10.8 and platelet count 95,000. A drop in white blood cell could be related to acute illness. She does have liver cirrhosis which is contributing to leukopenia. We will review her peripheral smear. If her white blood cell count continues to drop, we may consider starting her on Neupogen. She does have a history of hepatitis C. We should obtain a hepatitis panel and PCR for Hepatitis C. Further recommendations will be made based on the lab workup and subsequent trend in her white blood cell count. 2. Anemia. This is microcytic. She has a longstanding history of anemia. She is iron-deficient; we will treat her with iron infusion. We will check LDH and haptoglobin. It does not appear that she is hemolyzing. Her total bilirubin is normal at 0.4. We should obtain a stool hemoccult. 3. Thrombocytopenia. This is chronic and is secondary to liver cirrhosis and possibly Hepatitis C. Thank you for allowing me to participate in the care of this patient will continue to follow this patient along. MD NICOLE Renteria/juan pablo /12:03 AM /6:57 AM MTDWilver
--- NOTE | 2017-03-09 07:38 | PD.ORT.PN ---
Subjective Subjective Remarks Patient appears comfortable. NAD. Objective Vitals Vital Signs Date Time Temp Pulse Resp B/P (MAP) Pulse Ox O2 Delivery O2 Flow Rate FiO2 03/09/17 04:03 97.6 107 20 110/68 (82) 94 03/09/17 00:00 98.0 96 17 114/65 (81) 97 03/08/17 21:40 Nasal Cannula 3.00 03/08/17 20:00 97.9 91 17 100/63 (75) 93 03/08/17 16:24 96 Nasal Cannula 3.00 03/08/17 15:35 97.9 106 19 102/61 (75) 98 03/08/17 11:30 97.8 89 19 104/67 (79) 95 03/08/17 10:57 97 Nasal Cannula 3.00 03/08/17 07:41 97.9 85 19 99/65 (76) 98 I/O 03/08/17 03/08/17 03/08/17 03/09/17 03/09/17 03/09/17 07:00 15:00 23:00 07:00 15:00 23:00 Intake Total 440 ml 500 ml 220 ml Balance 440 ml 500 ml 220 ml Intake Oral 240 ml 500 ml 220 ml IV Total 200 ml # Voids 2 4 1 # Bowel Movements 0 1 Result Diagram: 03/08/17 0655 03/08/17 1210 Imaging Last 24 hours Impressions Lower Extremity Ultrasound 03/07/17 1108 Signed Impressions: Service Date/Time: February 11:24 - CONCLUSION: No evidence of deep venous thrombosis. Dwayne Armas MD Chest X-Ray 03/07/17 1047 Signed Impressions: Service Date/Time: February 11:00 - CONCLUSION: No acute disease. Dwayne Armas MD Objective Remarks aaox3 on O2 NC BLE: nvi. bilateral pitting edema from the knee distally with areas of erythema. left hip wound healed. small wound to the LLE Assessment & Plan Assessment and Plan 1. COPD exacerbation 2. Congestive heart failure 3. Hypochromic microcytic anemia, thrombocytopenia, leukopenia 4. Hypokalemia 5. DVT prophylaxis: SCDs. Avoid chemical prophylaxis secondary to thrombocytopenia. Planned Left hip bipolar revision for recurrent dislocations. I appreciate the input of pulmonary and medical team in this patient's care plan OR likely saturday if cleared. Continue to monitor. Constantine Higuera Mar 09, 2017 07:38
[2017-03-09] MEDS: REMOVE OLD PATCH T-DERMAL SCH (09:00)
[2017-03-09] MEDS: DOCUSATE SODIUM 100 MG CAP PO SCH ×2 (09:30→20:42)
[2017-03-09] MEDS: SPIRONOLACTONE 50 MG TAB PO SCH (09:30)
[2017-03-09] MEDS: RIFAXIMIN 550 MG TAB PO SCH ×2 (09:30→20:42)
[2017-03-09] MEDS: methylPREDNISolone SOD SUCC 125 MG/2 ML VIAL IVP SCH ×2 (09:30→15:54)
[2017-03-09] MEDS: PANTOPRAZOLE SOD 20 MG DELAYED RELEASE TAB PO SCH (09:30)
[2017-03-09] MEDS: THIAMINE HCL 100 MG TAB PO SCH (09:30)
[2017-03-09] MEDS: FUROSEMIDE 40 MG/4 ML VIAL IV PUSH SCH ×2 (09:30→17:47)
[2017-03-09] MEDS: NICOTINE 14 MG/24 HR PATCH T-DERMAL SCH (09:30)
[2017-03-09] MEDS: BUDESONIDE-FORMOTEROL 160/4.5 MCG INHALER INH SCH ×2 (09:31→20:42)
[2017-03-09] MEDS: SODIUM CHLORIDE 0.9% FLUSH 10 ML FLUSH IV FLUSH SCH ×2 (09:31→20:43)
--- NOTE | 2017-03-09 10:33 | PD.ONC.PN ---
Subjective Subjective Remarks Afebrile Patient reports most of her pain is in her back and legs Has some shortness of breath improved with breathing treatments Anxious to get surgery over with Objective Data Date Time Temp Pulse Resp B/P (MAP) Pulse Ox O2 Delivery O2 Flow Rate FiO2 03/09/17 09:47 92 Nasal Cannula 3.00 03/09/17 08:00 96.6 91 18 114/75 (88) 96 03/09/17 04:03 97.6 107 20 110/68 (82) 94 03/09/17 00:00 98.0 96 17 114/65 (81) 97 03/08/17 21:40 Nasal Cannula 3.00 03/08/17 20:00 97.9 91 17 100/63 (75) 93 03/08/17 16:24 96 Nasal Cannula 3.00 03/08/17 15:35 97.9 106 19 102/61 (75) 98 03/08/17 11:30 97.8 89 19 104/67 (79) 95 03/08/17 10:57 97 Nasal Cannula 3.00 03/09/17 03/09/17 03/09/17 07:00 15:00 23:00 Intake Total 220 ml Balance 220 ml Result Diagram: 03/08/17 0655 03/08/17 1210 Laboratory Results Laboratory Tests Test 03/08/17 12:10 Blood Urea Nitrogen 11 MG/DL Creatinine 0.67 MG/DL Random Glucose 245 MG/DL Calcium Level 8.1 MG/DL Sodium Level 137 MEQ/L Potassium Level 3.5 MEQ/L Chloride Level 98 MEQ/L Carbon Dioxide Level 33.9 MEQ/L Anion Gap 5 MEQ/L Estimat Glomerular Filtration Rate 90 ML/MIN Administered Medications Medications (Trade) Dose Ordered Sig/Rita Route PRN Reason Start Time Stop Time Status Last Admin Dose Admin Lactated Ringer's 1,000 ml @ 30 mls/hr Q24H PRN IV SEE LABEL COMMENTS 03/07/17 11:15 03/10/17 11:14 03/07/17 11:25 Chlorhexidine Gluconate (Chlorhexidine 2% Cloth) 3 pack EGG SEPARATOR PRN TOPICAL SEE LABEL COMMENTS 03/07/17 11:15 03/10/17 11:14 03/07/17 11:00 Sodium Chloride (NS Flush) 2 ml BID IV FLUSH 03/07/17 21:00 03/09/17 09:31 Docusate Sodium (Colace) 100 mg BID PO 03/07/17 21:00 03/09/17 09:30 Rifaximin (Xifaxan) 550 mg Q12HR PO 03/07/17 21:00 03/09/17 09:30 Spironolactone (Aldactone) 50 mg DAILY PO 03/08/17 09:00 03/09/17 09:30 Pantoprazole Sodium (Protonix) 20 mg DAILY PO 03/08/17 09:00 03/09/17 09:30 Thiamine HCl (Vitamin B1) 500 mg DAILY PO 03/08/17 09:00 03/09/17 09:30 Albuterol/ Ipratropium (Duoneb Neb) 1 ampule Q6HR NEB INH 03/07/17 16:45 03/09/17 09:45 Methylprednisolone Sodium Succinate (SoluMEDROL INJ) 40 mg Q8H IVP 03/08/17 08:00 03/09/17 09:30 Furosemide (Lasix Inj) 40 mg BID@ IV PUSH 03/07/17 18:00 03/09/17 09:30 Nicotine (Habitrol 14 Mg Patch.24 Hr) 1 patch DAILY T-DERMAL 03/07/17 16:45 03/09/17 09:30 Miscellaneous Information 1 DAILY T-DERMAL 03/08/17 09:00 03/09/17 09:00 Azithromycin 250 mg/Sodium Chloride 250 ml @ 250 mls/hr Q24H IV 03/08/17 08:00 03/08/17 07:51 Budesonide/ Formoterol Fumarate (Symbicort 160-4.5 Mcg Inh) 2 puff Q12HR INH 03/07/17 21:00 03/09/17 09:31 Morphine Sulfate (Oramorph Sr) 15 mg Q6HR PO 03/08/17 12:00 03/09/17 05:20 Objective Remarks GENERAL: Older female resting in bed watching TV in no acute distress SKIN: Warm and dry. Multiple bruising to bilateral upper extremities HEAD: Normocephalic. EYES: No injection or drainage. NECK: Supple, trachea midline. CARDIOVASCULAR: Regular rate and rhythm without murmurs. RESPIRATORY: Clear anteriorly. Breathing unlabored at rest. GASTROINTESTINAL: Abdomen soft, non-tender, nondistended. EXTREMITIES: No cyanosis MUSCULOSKELETAL: Adequate muscle tone. NEUROLOGICAL: No obvious focal deficit. Awake, alert, and oriented x3. Assessment/Plan Problem List: (1) Pancytopenia ICD Codes: D61.818 - Other pancytopenia Plan: -- CT the chest was able to visualize a very small amount of ascites with noted splenomegaly as well as liver cirrhosis has been present since at least 2011. -- Pancytopenia likely due to liver disease -- Will plan for Neupogen if ANC is trending down (2) Iron deficiency ICD Codes: E61.1 - Iron deficiency Plan: -- Patient reports she has been iron deficient in the past -- Iron sucrose 200 mg 3 doses ordered (3) Hip fracture ICD Codes: S72.009A - Fracture of unspecified part of neck of unspecified femur , initial encounter for closed fracture Plan: -- Ortho following -- Planning for surgery on Saturday (4) Liver disease, chronic ICD Codes: K76.9 - Liver disease, unspecified Plan: -- Per patient she is being evaluated by a transplant team -- Has a history of hepatitis C but reports she was treated with Vivarin -- Contributing to pancytopenia Assessment 61 y/o female with history of liver disease admitted for hip fracture; hematology consulted for pancytopenia Plan 1. Await CBC today; if ANC less than 900 will give Neupogen 2. Iron stores are noted to be deplete; iron sucrose 200 mg 3 days ordered 3. Monitor cytopenias; patient may need platelet transfusion prior to surgery on Saturday 4. Supportive care Attending Statement The exam, history, and the medical decision-making described in the above note were completed with the assistance of the mid-level provider. I reviewed and agree with the findings presented. I attest that I had a [id number] encounter with the patient on the same day, and personally performed and documented my assessment and findings in the medical record Karly Love Mar 09, 2017 10:33 Lamine Figueroa MD Mar 09, 2017 16:07
[2017-03-09] MEDS: AZITHROMYCIN INJ 250 MG in SODIUM CHLOR 0.9% 250 ML INJ 250 ML IV SCH (11:02)
[2017-03-09 13:56] LABS: AUTOMATED NEUTROPHIL # 5.7 TH/MM3 (1.8-7.7); BASOPHIL % 0.3 % (0.0-2.0); HEMATOCRIT 31.8 % (35.0-46.0); HEMOGLOBIN 9.3 GM/DL (11.6-15.3); LYMPH % 2.4 % (9.0-44.0); LYMPHOCYTE # 0.2 TH/MM3 (1.0-4.8); MEAN CELL VOLUME 70.6 FL (80.0-100.0); MEAN CORPUSCULAR HEMOGLOBIN 20.8 PG (27.0-34.0); MONO % 15.5 % (0.0-8.0); MONOCYTE # 1.1 TH/MM3 (0-0.9); NEUT % 81.8 % (16.0-70.0); PLATELET COUNT 144 TH/MM3 (150-450); WHITE BLOOD COUNT 6.9 TH/MM3 (4.0-11.0)
[2017-03-09 14:00] LABS: MEAN CORPUSCULAR HGB CONC 29.4 % (32.0-36.0)
[2017-03-09] MEDS: IRON SUCROSE INJ 200 MG in SODIUM CHLORIDE 0.9% INJ 100 ML IV SCH (14:14)
[2017-03-09] MEDS ORDERED: ACETAMINOPHEN 500 MG CPLT PO PRN (15:00)
[2017-03-09] MEDS ORDERED: SODIUM CHLORIDE 0.65% NASAL SPRAY 45 ML BTL EACH NARE PRN (16:15)
--- NOTE | 2017-03-09 16:17 | HHI.PR ---
Subjective Remarks Complains of dry nose today. Patient says her breathing is improved and she is breathing approximately 80% of her baseline. She is able to tolerate breathing off of oxygen and on room air. Objective Vital Signs Date Time Temp Pulse Resp B/P (MAP) Pulse Ox O2 Delivery O2 Flow Rate FiO2 03/09/17 12:00 98.6 103 18 99/60 (73) 93 03/09/17 09:47 92 Nasal Cannula 3.00 03/09/17 09:35 96 Nasal Cannula 3.00 03/09/17 08:00 96.6 91 18 114/75 (88) 96 03/09/17 04:03 97.6 107 20 110/68 (82) 94 03/09/17 00:00 98.0 96 17 114/65 (81) 97 03/08/17 21:40 Nasal Cannula 3.00 03/08/17 20:00 97.9 91 17 100/63 (75) 93 03/08/17 16:24 96 Nasal Cannula 3.00 I/O 03/08/17 03/08/17 03/08/17 03/09/17 03/09/17 03/09/17 07:00 15:00 23:00 07:00 15:00 23:00 Intake Total 440 ml 500 ml 220 ml 250 ml 110 ml Balance 440 ml 500 ml 220 ml 250 ml 110 ml Intake Oral 240 ml 500 ml 220 ml IV Total 200 ml 250 ml 110 ml # Voids 2 4 1 # Bowel Movements 0 1 Result Diagram: 03/09/17 1300 03/08/17 1210 Objective Remarks GENERAL: NAD, A&Ox3 HEAD: Normocephalic. NECK: Supple, trachea midline. No lymphadenopathy. EYES: No scleral icterus. No injection or drainage. CARDIOVASCULAR: Regular rate and rhythm without murmurs, gallops, or rubs. RESPIRATORY: Breath sounds equal bilaterally. No accessory muscle use. GASTROINTESTINAL: Abdomen soft, non-tender, nondistended. MUSCULOSKELETAL: No cyanosis, or edema. Pain with range of motion of left hip. SKIN: Warm and dry. NEURO: No focal neurological deficitis. A/P Problem List: (1) COPD exacerbation ICD Code: J44.1 - Chronic obstructive pulmonary disease with (acute) exacerbation Assessment and Plan 61-year-old female admitted secondary to hip fracture with COPD exacerbation upon admit. Osteoarthritis left hip Planned left hip revision COPD exacerbation improving Medically cleared for surgery Orthopedic surgeons following COPD exacerbation Clinically improved Patient is approximately 80% to baseline, she should be 90-100% by tomorrow morning. Continue Solu-Medrol Continue bronchodilators Oxygen as needed Patient is on room air when seen and breathing comfortably Pulmonology following Lower extremity edema No evidence for CHF on current echocardiogram No further edema Hypochromic microcytic anemia Thrombocytopenia Leukopenia Follow CBC Hematology following DVT prophylaxis SCDs Leif Tam MD Mar 09, 2017 16:17
[2017-03-10] VITALS (8 sets, daily range): BP systolic 103–133; BP diastolic 57–83; PULSE 86–95; RESP 17–20; TEMP 97.1–98.7; O2SAT 92–98
[2017-03-10] MEDS: MORPHINE SULFATE 15 MG CONTROLLED RELEASE TAB PO SCH ×4 (00:09→18:18)
[2017-03-10] MEDS: methylPREDNISolone SOD SUCC 125 MG/2 ML VIAL IVP SCH ×3 (00:09→16:51)
[2017-03-10] MEDS: SODIUM CHLORIDE 0.9% FLUSH 10 ML FLUSH IV FLUSH PRN (00:09)
[2017-03-10] MEDS: RESP: ALBUTEROL 2.5 MG/IPRATROPIUM 0.5 MG NEB (SCH) INH ×2 (04:00→09:55)
[2017-03-10] MEDS: AZITHROMYCIN INJ 250 MG in SODIUM CHLOR 0.9% 250 ML INJ 250 ML IV SCH (08:50)
[2017-03-10] MEDS: DOCUSATE SODIUM 100 MG CAP PO SCH ×3 (08:51→21:28)
[2017-03-10] MEDS: PANTOPRAZOLE SOD 20 MG DELAYED RELEASE TAB PO SCH (08:51)
[2017-03-10] MEDS: THIAMINE HCL 100 MG TAB PO SCH (08:51)
[2017-03-10] MEDS: SPIRONOLACTONE 50 MG TAB PO SCH (08:51)
[2017-03-10] MEDS: RIFAXIMIN 550 MG TAB PO SCH ×2 (08:51→21:28)
[2017-03-10] MEDS: FUROSEMIDE 40 MG/4 ML VIAL IV PUSH SCH ×2 (08:52→16:51)
[2017-03-10] MEDS: BUDESONIDE-FORMOTEROL 160/4.5 MCG INHALER INH SCH ×2 (08:52→21:32)
[2017-03-10] MEDS: SODIUM CHLORIDE 0.9% FLUSH 10 ML FLUSH IV FLUSH SCH ×2 (08:52→21:00)
[2017-03-10] MEDS: REMOVE OLD PATCH T-DERMAL SCH (08:53)
[2017-03-10] MEDS: NICOTINE 14 MG/24 HR PATCH T-DERMAL SCH (08:53)
[2017-03-10 09:32] LABS: AUTOMATED NEUTROPHIL # 8.7 TH/MM3 (1.8-7.7); BASOPHIL % 0.1 % (0.0-2.0); HEMATOCRIT 30.4 % (35.0-46.0); HEMOGLOBIN 9.2 GM/DL (11.6-15.3); LYMPH % 2.6 % (9.0-44.0); LYMPHOCYTE # 0.2 TH/MM3 (1.0-4.8); MEAN CELL VOLUME 69.5 FL (80.0-100.0); MEAN CORPUSCULAR HGB CONC 30.2 % (32.0-36.0); MEAN PLATELET VOLUME 9.2 FL (7.0-11.0); MONO % 4.9 % (0.0-8.0); MONOCYTE # 0.5 TH/MM3 (0-0.9); NEUT % 92.4 % (16.0-70.0); PLATELET COUNT 128 TH/MM3 (150-450); RED BLOOD COUNT 4.37 MIL/MM3 (4.00-5.30); RED CELL DISTRIBUTION WIDTH 21.7 % (11.6-17.2); WHITE BLOOD COUNT 9.4 TH/MM3 (4.0-11.0)
[2017-03-10 09:54] LABS: ALBUMIN 3.4 GM/DL (3.4-5.0); ALT (GPT) 13 U/L (10-53); AST (GOT) 11 U/L (15-37); BICARBONATE 35.9 MEQ/L (21.0-32.0); BLOOD UREA NITROGEN 14 MG/DL (7-18); CALCIUM 8.8 MG/DL (8.5-10.1); CHLORIDE 95 MEQ/L (98-107); CREATININE 0.53 MG/DL (0.50-1.00); GLOMERULAR FILTRATION RATE 118 ML/MIN (>89); GLUCOSE,RANDOM 80 MG/DL (74-106); SODIUM (NA) 136 MEQ/L (136-145)
[2017-03-10 10:07] LABS: ALKALINE PHOSPHATASE 97 U/L (45-117); TOTAL BILIRUBIN ADULT 0.4 MG/DL (0.2-1.0); TOTAL PROTEIN 6.9 GM/DL (6.4-8.2)
[2017-03-10] MEDS ORDERED: POTASSIUM CHLORIDE 20 MEQ PWD PACKET PO ONE ×2 (10:30→19:00)
--- NOTE | 2017-03-10 10:53 | PD.ORT.PN ---
Subjective Subjective Remarks Patient comfortable Patient states that medical doctors have cleared her for surgery for Saturday Objective Vitals Vital Signs Date Time Temp Pulse Resp B/P (MAP) Pulse Ox O2 Delivery O2 Flow Rate FiO2 03/10/17 09:57 93 03/10/17 08:00 98.4 87 20 122/65 (84) 93 03/10/17 04:20 98.7 95 18 133/75 (94) 92 03/09/17 23:54 98.0 108 17 109/63 (78) 92 03/09/17 19:20 97.1 81 17 116/70 (85) 92 03/09/17 16:00 97.9 106 18 111/65 (80) 99 03/09/17 12:00 98.6 103 18 99/60 (73) 93 I/O 03/09/17 03/09/17 03/09/17 03/10/17 03/10/17 03/10/17 07:00 15:00 23:00 07:00 15:00 23:00 Intake Total 220 ml 850 ml 590 ml 720 ml Balance 220 ml 850 ml 590 ml 720 ml Intake Oral 220 ml 600 ml 480 ml 720 ml IV Total 250 ml 110 ml # Voids 1 3 2 6 # Bowel Movements 2 0 1 Result Diagram: 03/10/17 0812 03/10/17 0812 Imaging Last 24 hours Impressions Lower Extremity Ultrasound 03/07/17 1108 Signed Impressions: Service Date/Time: February 11:24 - CONCLUSION: No evidence of deep venous thrombosis. Dwayne Armas MD Chest X-Ray 03/07/17 1047 Signed Impressions: Service Date/Time: February 11:00 - CONCLUSION: No acute disease. Dwayne Armas MD Objective Remarks Left Hip healed incision calves soft NVI Assessment & Plan Assessment and Plan Unstable hip with needs revision sugery Medical problems 1. Improved COPD exacerbation 2. Congestive heart failure 3. Hypochromic microcytic anemia, thrombocytopenia, leukopenia 4. Hypokalemia 5. DVT prophylaxis: SCDs. Avoid chemical prophylaxis secondary to thrombocytopenia. We need to clarify that we can proceed with surgery tomorrow NPO after midnight Jaylan Del Rio MD Mar 10, 2017 10:52
[2017-03-10] MEDS: IRON SUCROSE INJ 200 MG in SODIUM CHLORIDE 0.9% INJ 100 ML IV SCH (11:36)
--- NOTE | 2017-03-10 14:32 | HHI.PR ---
Subjective Remarks Hypokalemia seen on this morning's labs. Supplementation in process. Her respiratory status she feels has improved from 80% of baseline to approximately 94% of baseline today. No new complaints. Patient is medically cleared for surgery. Objective Vital Signs Date Time Temp Pulse Resp B/P (MAP) Pulse Ox O2 Delivery O2 Flow Rate FiO2 03/10/17 12:00 98.6 94 18 114/83 (93) 95 03/10/17 09:57 93 03/10/17 08:00 98.4 87 20 122/65 (84) 93 03/10/17 04:20 98.7 95 18 133/75 (94) 92 03/09/17 23:54 98.0 108 17 109/63 (78) 92 03/09/17 19:20 97.1 81 17 116/70 (85) 92 03/09/17 16:00 97.9 106 18 111/65 (80) 99 I/O 03/09/17 03/09/17 03/09/17 03/10/17 03/10/17 03/10/17 07:00 15:00 23:00 07:00 15:00 23:00 Intake Total 220 ml 850 ml 590 ml 720 ml 250 ml Balance 220 ml 850 ml 590 ml 720 ml 250 ml Intake Oral 220 ml 600 ml 480 ml 720 ml IV Total 250 ml 110 ml 250 ml # Voids 1 3 2 6 # Bowel Movements 2 0 1 Result Diagram: 03/10/17 0812 03/10/17 0812 Objective Remarks GENERAL: NAD, A&Ox3 HEAD: Normocephalic. NECK: Supple, trachea midline. No lymphadenopathy. EYES: No scleral icterus. No injection or drainage. CARDIOVASCULAR: Regular rate and rhythm without murmurs, gallops, or rubs. RESPIRATORY: Breath sounds equal bilaterally. No accessory muscle use. Wheezing and right lung GASTROINTESTINAL: Abdomen soft, non-tender, nondistended. MUSCULOSKELETAL: No cyanosis, or edema. Pain with range of motion of left hip. SKIN: Warm and dry. NEURO: No focal neurological deficitis. A/P Problem List: (1) COPD exacerbation ICD Code: J44.1 - Chronic obstructive pulmonary disease with (acute) exacerbation Assessment and Plan 61-year-old female admitted secondary to hip fracture with COPD exacerbation upon admit. Plan for surgery tomorrow. Patient is medically clear for surgery tomorrow. Osteoarthritis left hip Planned left hip revision COPD exacerbation improving Medically cleared for surgery Orthopedic surgeons following COPD exacerbation Clinically improved Patient is approximately 94% to baseline today, per her report Continue Solu-Medrol Continue bronchodilators Oxygen as needed Patient is on room air when seen and breathing comfortably Pulmonology following Medically clear for surgery tomorrow Lower extremity edema No evidence for CHF on current echocardiogram No further edema Hypochromic microcytic anemia Thrombocytopenia Leukopenia Follow CBC Hematology following DVT prophylaxis SCDs Leif Tam MD Mar 10, 2017 14:32
[2017-03-10] MEDS: RESP: ALBUTEROL 2.5 MG/IPRATROPIUM 0.5 MG NEB (SCH) NEB (20:14)
[2017-03-10] MEDS ORDERED: CHLORHEXIDINE GLUCONATE 2 % 1 PACK (2 CLOTHS) TOPICAL PRN (23:45)
[2017-03-10] MEDS ORDERED: SODIUM CHLORID 0.9% 500 ML IV PRN (23:45)
[2017-03-11] VITALS (9 sets, daily range): BP systolic 85–124; BP diastolic 60–75; PULSE 76–105; RESP 18–22; TEMP 97.3–98.4; O2SAT 94–97
[2017-03-11] MEDS: MORPHINE SULFATE 15 MG CONTROLLED RELEASE TAB PO SCH ×5 (00:08→23:03)
[2017-03-11] MEDS: methylPREDNISolone SOD SUCC 125 MG/2 ML VIAL IVP SCH ×3 (00:09→16:52)
[2017-03-11] MEDS: LACTATED RINGER'S 1000 ML IV PRN ×2 (05:53→10:00)
[2017-03-11 06:22] LABS: AUTOMATED NEUTROPHIL # 7.2 TH/MM3 (1.8-7.7); BASOPHIL % 0.1 % (0.0-2.0); EOSINOPHIL % 0.1 % (0.0-4.0); HEMATOCRIT 29.1 % (35.0-46.0); HEMOGLOBIN 9.2 GM/DL (11.6-15.3); LYMPH % 1.6 % (9.0-44.0); LYMPHOCYTE # 0.1 TH/MM3 (1.0-4.8); MEAN CELL VOLUME 69.3 FL (80.0-100.0); MEAN CORPUSCULAR HEMOGLOBIN 21.8 PG (27.0-34.0); MEAN CORPUSCULAR HGB CONC 31.5 % (32.0-36.0); MEAN PLATELET VOLUME 9.4 FL (7.0-11.0); MONOCYTE # 0.3 TH/MM3 (0-0.9); NEUT % 94.2 % (16.0-70.0); PLATELET COUNT 111 TH/MM3 (150-450); RED BLOOD COUNT 4.21 MIL/MM3 (4.00-5.30); RED CELL DISTRIBUTION WIDTH 21.3 % (11.6-17.2); WHITE BLOOD COUNT 7.6 TH/MM3 (4.0-11.0)
[2017-03-11 06:26] LABS: ALBUMIN 3.2 GM/DL (3.4-5.0); ALT (GPT) 15 U/L (10-53); AST (GOT) 19 U/L (15-37); BLOOD UREA NITROGEN 19 MG/DL (7-18); CHLORIDE 99 MEQ/L (98-107); CREATININE 0.47 MG/DL (0.50-1.00); GLOMERULAR FILTRATION RATE 135 ML/MIN (>89); GLUCOSE,RANDOM 113 MG/DL (74-106); SODIUM (NA) 139 MEQ/L (136-145)
[2017-03-11 06:28] LABS: ALKALINE PHOSPHATASE 89 U/L (45-117); TOTAL BILIRUBIN ADULT 0.4 MG/DL (0.2-1.0); TOTAL PROTEIN 6.9 GM/DL (6.4-8.2)
[2017-03-11 07:02] LABS: ACANTHOCYTES 1+ (NORMAL); OVALOCYTES 1+ (NORMAL); TARGET CELLS 1+ (NORMAL)
[2017-03-11] MEDS: NICOTINE 14 MG/24 HR PATCH T-DERMAL SCH (08:14)
[2017-03-11] MEDS: REMOVE OLD PATCH T-DERMAL SCH (08:15)
[2017-03-11] MEDS: THIAMINE HCL 100 MG TAB PO SCH (08:16)
[2017-03-11] MEDS: RIFAXIMIN 550 MG TAB PO SCH ×2 (08:16→21:00)
[2017-03-11] MEDS: PANTOPRAZOLE SOD 20 MG DELAYED RELEASE TAB PO SCH (08:16)
[2017-03-11] MEDS: FUROSEMIDE 40 MG/4 ML VIAL IV PUSH SCH ×2 (08:17→18:00)
[2017-03-11] MEDS: SODIUM CHLORIDE 0.9% FLUSH 10 ML FLUSH IV FLUSH SCH ×2 (08:17→23:02)
[2017-03-11] MEDS: DOCUSATE SODIUM 100 MG CAP PO SCH (08:17)
[2017-03-11] MEDS: BUDESONIDE-FORMOTEROL 160/4.5 MCG INHALER INH SCH ×2 (08:17→21:00)
[2017-03-11] MEDS: SPIRONOLACTONE 50 MG TAB PO SCH (08:17)
[2017-03-11] MEDS: IRON SUCROSE INJ 200 MG in SODIUM CHLORIDE 0.9% INJ 100 ML IV SCH (08:22)
[2017-03-11] MEDS: AZITHROMYCIN INJ 250 MG in SODIUM CHLOR 0.9% 250 ML INJ 250 ML IV SCH (08:33)
[2017-03-11] MEDS: RESP: ALBUTEROL 2.5 MG/IPRATROPIUM 0.5 MG NEB (SCH) NEB ×2 (09:08→13:44)
[2017-03-11] MEDS ORDERED: GENTAMICIN SULFATE 80 MG/2 ML VIAL ONE (09:43)
[2017-03-11] MEDS ORDERED: TRANEXAMIC ACID IV SCH (11:00)
[2017-03-11] MEDS ORDERED: SODIUM CHLORIDE 0.9% IV SCH (11:00)
[2017-03-11] MEDS ORDERED: ceFAZolin INJ 1,000 MG VIAL ONE (11:38)
[2017-03-11] MEDS ORDERED: SODIUM CHLOR 0.9% 250 ML INJ 250 ML ONE (11:38)
[2017-03-11] MEDS ORDERED: VANCOMYCIN HCL 1000 MG VIAL ONE (11:38)
[2017-03-11] MEDS ORDERED: methylPREDNISolone SOD SUCC 125 MG/2 ML VIAL IV ONE (11:45)
[2017-03-11] MEDS ORDERED: ONDANSETRON HCL 4 MG/2 ML VIAL IV PUSH ONE (12:00)
[2017-03-11] MEDS ORDERED: DEXAMETHASONE SOD PHOS 4 MG/ML VIAL IV ONE (12:00)
[2017-03-11] MEDS ORDERED: LIDOCAINE HCL 1% PF 5 ML SYRINGE OTHER ONE (12:00)
[2017-03-11] MEDS ORDERED: PROPOFOL 200 MG/20 ML AMP IV ONE (12:00)
[2017-03-11] MEDS ORDERED: METOPROLOL TARTRATE 5 MG/5 ML VIAL IV PUSH ONE (12:00)
[2017-03-11] MEDS ORDERED: ESMOLOL HCL 100 MG/10 ML VIAL IV ONE (12:00)
--- NOTE | 2017-03-11 13:22 | HHI.PR ---
Subjective Remarks Follow up for left hip revision, post op atrial fib. Patient was seen in PACU and currently doing well. Denies any chest pain, shortness of breath, fever, chills. Pain is well controlled. She is currently on Cardizem drip. Objective Vitals Vital Signs Date Time Temp Pulse Resp B/P (MAP) Pulse Ox O2 Delivery O2 Flow Rate FiO2 03/11/17 08:00 98.3 76 18 109/65 (80) 97 03/11/17 07:35 Nasal Cannula 3.00 03/11/17 04:05 97.3 85 18 124/72 (89) 94 03/10/17 23:34 97.6 86 18 104/62 (76) 95 03/10/17 20:16 98 Nasal Cannula 3.00 03/10/17 20:11 98.7 89 17 103/57 (72) 97 03/10/17 19:30 Nasal Cannula 3.00 03/10/17 16:00 97.1 95 18 111/71 (84) 98 I/O 03/10/17 03/10/17 03/10/17 03/11/17 03/11/17 03/11/17 07:00 15:00 23:00 07:00 15:00 23:00 Intake Total 720 ml 960 ml 480 ml 480 ml 1200 ml Output Total 75 ml Balance 720 ml 960 ml 480 ml 480 ml 1125 ml Intake Oral 720 ml 600 ml 480 ml 480 ml IV Total 360 ml Other 1200 ml Estimated Blood Loss 75 ml # Voids 6 5 6 3 1 # Bowel Movements 1 0 2 1 Result Diagram: 03/11/17 0339 03/11/17 0339 Imaging Last Impressions Hip and Pelvis X-Ray 03/11/17 0000 Signed Impressions: Service Date/Time: Saturday, March 11, 2017 16:09 - CONCLUSION: Well seated left total hip prosthesis. Intact pelvis. Oleg Talley MD Chest CT 03/07/172044 Signed Impressions: Service Date/Time: February 21:47 - CONCLUSION: 1. Mild fibromemphysematous changes with mild bibasilar atelectasis and/or scarring. 2. Focal mildly nodular opacity of the right middle lobe, probably a localized area of scarring. A followup noncontrast chest CT is suggested in 6 months. 3. Partly seen in the upper abdomen is evidence of cirrhosis, small to moderate ascites and splenomegaly. These findings have been reported back in 2012. Shekhar Ward MD Lower Extremity Ultrasound 03/07/17 1108 Signed Impressions: Service Date/Time: February 11:24 - CONCLUSION: No evidence of deep venous thrombosis. Dwayne Armas MD Chest X-Ray 03/07/17 1047 Signed Impressions: Service Date/Time: February 11:00 - CONCLUSION: No acute disease. Dwayne Armas MD Objective Remarks GENERAL: Alert, Oriented x 3, NAD. SKIN: Warm and dry. HEAD: Normocephalic. EYES: No scleral icterus. No injection or drainage. NECK: Supple, trachea midline. No JVD or lymphadenopathy. CARDIOVASCULAR: Irreg Irreg without murmurs, gallops, or rubs. RESPIRATORY: Breath sounds equal bilaterally. No accessory muscle use. GASTROINTESTINAL: Abdomen soft, non-tender, nondistended. MUSCULOSKELETAL: No cyanosis, or edema. BACK: Nontender without obvious deformity. No CVA tenderness. Procedures Echo 03/08/2017 Normal left ventricular size. Wall thickness is normal. The left ventricular systolic function is low normal with an estimated ejection fraction in the range of 50- 55%. Mitral annular calcification is present. Mild mitral valve regurgitation. The pulmonary valve is not well visualized. A/P Problem List: (1) Instability of left hip joint ICD Code: M25.352 - Other instability, left hip (2) COPD exacerbation ICD Code: J44.1 - Chronic obstructive pulmonary disease with (acute) exacerbation Assessment and Plan Ms. Tam is a pleasant 61 year old female with a history of COPD, liver cirrhosis who was admitted to the hospital due to revision of hip surgery. Patient was evaluated by heme/onc, Pulmonary and hospitalist service for medical clearance prior to surgery. She underwent left hip revision on 2017. Post operatively she developed Afib. - Left hip joint instability - s/p left hip revision - Continue Morphine SR 15mg Q6hrs - Bowel regimen. - COPD exacerbation - Continue Symbicort, prednisone. Suppl O2 to keep O2 sat > 90%. - Ipratropium Neb treat. D/C albuterol Neb due to tachycardia - Continue Prednisone 10mg BID started by pulmonology. - Atrial fibrillation - Mild hypotension - Post op occurrence. - Continue Diltiazem drip and wean it down as much as possible. - Currently rate controlled. - If MAP blood pressure drops below 65, we will give small boluses such as 500cc. - Liver cirrhosis - Continue lasix, Spironolactone. Hold lasix if BP < 100 systolic. - Pancytopenia - Hematology following. Likely due to cirrhosis and splenomegaly. Full code. Xarelto for DVT prophylaxis. Magda German DO Mar 11, 2017 13:22
[2017-03-11] MEDS ORDERED: DO NOT ADM ANY ANTICOAGULANT DRUGS PRN (13:36)
--- NOTE | 2017-03-11 13:37 | PD.OP ---
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 My MARKETING TECHNOLOGY COORDINATOR presence was necessary throughout this case for the manipulation and positioning of the surgical extremity. My MARKETING TECHNOLOGY COORDINATOR was assisting me throughout the duration of this procedure. The skill set of an Advance Registered Nurse Practitioner was medically necessary to complete this procedure. During the surgical case, the neurosurgical physician assistant was working at the back table and the Advance Registered Nurse Practitioner was directly assisting me. Resident Surgeon: None Operation and Findings: Please see previous office dictation about surgical indication. This is a 61- year-old female with a Complicated medical history who is status post left hip bipolar hemiarthroplasty for femoral neck fracture. She did well for about 3 months and subsequently had multiple lef hip dislocation, all of which were reduced in the emergency department. She continued to have hip instability and dislocation despite conservative treatment and wearing a hip abduction brace. Initially the patient was not compliant with posterior hip precautions. The patient was brought into the operating room and placed on the OR table. The patient was given anesthesia. The patient received IV antibiotics. The patient was then placed in lateral decubitus position. The LEFT hip and leg were prepped with alcohol, followed by Hibiclens and draped in a usual sterile fashion. Clean air was used for this procedure. Time out procedure was performed. The procedure began with a 5 inch incision over the posterolateral hip through the previous healed surgical scar. The subcutaneous tissue was dissected with the Bovie. The iliotibial band were split in line with fibers. The Charnley retractor was placed. The posterior capsular repair was disturbed. Previous sutures were removed. The hip was dislocated and the previous femoral bipolar head was removed. At this point a +8 trial head and neck were placed. The hip was reduced. The patient was found to have excellent stability with good range of motion. Trial components were removed. Soft tissue and bone were thoroughly irrigated. The head and neck were now impacted onto the stem. The hip was again reduced. The hip was found to have good range of motion and good stability. The left leg was slightly longer to maximize stability. The wound was thoroughly irrigated. The capsule and posterior soft tissue were closed with #1 Vicryl. Subcutaneous tissue was closed with 3-0 Vicryl. The skin was closed. A sterile dressing was applied. The patient was placed into a knee immobilizer and abduction pillow. The patient was awakened and transferred to the recovery room in stable condition. Needle and sponge counts were correct. POSTP-OP PLAN OF ACTIVITY Antibiotics: Ancef Antiocoagulation: Lovenox (xarelto at dc) Weight bearing status: WBAT, posterior hip precautions Dressing: none Dispo: expected discharge 2-3 days SNF vs home Alf Webster Jr., MD Mar 11, 2017 13:37
[2017-03-11] MEDS ORDERED: PERC5TAB12 PO (13:38)
[2017-03-11] MEDS ORDERED: XARE10TA PO (13:38)
[2017-03-11] MEDS ORDERED: MIDAZOLAM HCL 2 MG/2 ML VIAL ONE (14:05)
[2017-03-11] MEDS: DILTIAZEM HCL 25 MG/5 ML (Bolus) IV PUSH PRN ×2 (14:12→14:22)
[2017-03-11] MEDS ORDERED: DILTIAZEM HCL 25 MG/5 ML VIAL ONE (14:12)
--- NOTE | 2017-03-11 14:12 | PD.ONC.PN ---
Subjective Subjective Remarks Afebrile overnight. Patient seen in PACU s/p surgery. s/p left hip revision bipolar arthroplasty 75cc estimated blood loss per PACU nurse. Patient somnolent s/p anesthesia. Objective Data Date Time Temp Pulse Resp B/P (MAP) Pulse Ox O2 Delivery O2 Flow Rate FiO2 03/11/17 08:00 98.3 76 18 109/65 (80) 97 03/11/17 07:35 Nasal Cannula 3.00 03/11/17 04:05 97.3 85 18 124/72 (89) 94 03/10/17 23:34 97.6 86 18 104/62 (76) 95 03/10/17 20:16 98 Nasal Cannula 3.00 03/10/17 20:11 98.7 89 17 103/57 (72) 97 03/10/17 19:30 Nasal Cannula 3.00 03/10/17 16:00 97.1 95 18 111/71 (84) 98 03/11/17 03/11/17 03/11/17 07:00 15:00 23:00 Intake Total 480 ml 1200 ml Output Total 75 ml Balance 480 ml 1125 ml Result Diagram: 03/11/17 0339 03/11/17 0339 Laboratory Results Laboratory Tests Test 03/10/17 16:04 03/11/17 03:39 Potassium Level 3.3 MEQ/L 4.1 MEQ/L White Blood Count 7.6 TH/MM3 Red Blood Count 4.21 MIL/MM3 Hemoglobin 9.2 GM/DL Hematocrit 29.1 % Mean Corpuscular Volume 69.3 FL Mean Corpuscular Hemoglobin 21.8 PG Mean Corpuscular Hemoglobin Concent 31.5 % Red Cell Distribution Width 21.3 % Platelet Count 111 TH/MM3 Mean Platelet Volume 9.4 FL Neutrophils (%) (Auto) 94.2 % Lymphocytes (%) (Auto) 1.6 % Monocytes (%) (Auto) 4.0 % Eosinophils (%) (Auto) 0.1 % Basophils (%) (Auto) 0.1 % Neutrophils # (Auto) 7.2 TH/MM3 Lymphocytes # (Auto) 0.1 TH/MM3 Monocytes # (Auto) 0.3 TH/MM3 Eosinophils # (Auto) 0.0 TH/MM3 Basophils # (Auto) 0.0 TH/MM3 CBC Comment AUTO DIFF Differential Comment AUTO DIFF CONFIRMED Platelet Estimate LOW Platelet Morphology Comment NORMAL Target Cells 1+ Ovalocytes 1+ Acanthocytes 1+ Blood Urea Nitrogen 19 MG/DL Creatinine 0.47 MG/DL Random Glucose 113 MG/DL Total Protein 6.9 GM/DL Albumin 3.2 GM/DL Calcium Level 9.0 MG/DL Alkaline Phosphatase 89 U/L Aspartate Amino Transf (AST/SGOT) 19 U/L Alanine Aminotransferase (ALT/SGPT) 15 U/L Total Bilirubin 0.4 MG/DL Sodium Level 139 MEQ/L Chloride Level 99 MEQ/L Carbon Dioxide Level 35.0 MEQ/L Anion Gap 5 MEQ/L Estimat Glomerular Filtration Rate 135 ML/MIN Imaging Studies Last Impressions Chest CT 03/07/172044 Signed Impressions: Service Date/Time: February 21:47 - CONCLUSION: 1. Mild fibromemphysematous changes with mild bibasilar atelectasis and/or scarring. 2. Focal mildly nodular opacity of the right middle lobe, probably a localized area of scarring. A followup noncontrast chest CT is suggested in 6 months. 3. Partly seen in the upper abdomen is evidence of cirrhosis, small to moderate ascites and splenomegaly. These findings have been reported back in 2012. Shekhar Ward MD Lower Extremity Ultrasound 03/07/17 1108 Signed Impressions: Service Date/Time: February 11:24 - CONCLUSION: No evidence of deep venous thrombosis. Dwayne Armas MD Chest X-Ray 03/07/17 1047 Signed Impressions: Service Date/Time: February 11:00 - CONCLUSION: No acute disease. Dwayne Armas MD Administered Medications Medications (Trade) Dose Ordered Sig/Rita Route PRN Reason Start Time Stop Time Status Last Admin Dose Admin Sodium Chloride (NS Flush) 2 ml UNSCH PRN IV FLUSH FLUSH AFTER USING IV ACCESS 03/07/17 13:45 03/10/17 00:09 Sodium Chloride (NS Flush) 2 ml BID IV FLUSH 03/07/17 21:00 03/11/17 08:17 Docusate Sodium (Colace) 100 mg BID PO 03/07/17 21:00 03/10/17 08:51 Rifaximin (Xifaxan) 550 mg Q12HR PO 03/07/17 21:00 03/10/17 21:28 Spironolactone (Aldactone) 50 mg DAILY PO 03/08/17 09:00 03/10/17 08:51 Pantoprazole Sodium (Protonix) 20 mg DAILY PO 03/08/17 09:00 03/11/17 08:16 Thiamine HCl (Vitamin B1) 500 mg DAILY PO 03/08/17 09:00 03/11/17 08:16 Methylprednisolone Sodium Succinate (SoluMEDROL INJ) 40 mg Q8H IVP 03/08/17 08:00 03/11/17 08:16 Furosemide (Lasix Inj) 40 mg BID@18 IV PUSH 03/07/17 18:00 03/10/17 16:51 Nicotine (Habitrol 14 Mg Patch.24 Hr) 1 patch DAILY T-DERMAL 03/07/17 16:45 03/11/17 08:14 Miscellaneous Information 1 DAILY T-DERMAL 03/08/17 09:00 03/10/17 08:53 Azithromycin 250 mg/Sodium Chloride 250 ml @ 250 mls/hr Q24H IV 03/08/17 08:00 03/11/17 08:33 Budesonide/ Formoterol Fumarate (Symbicort 160-4.5 Mcg Inh) 2 puff Q12HR INH 03/07/17 21:00 03/11/17 08:17 Morphine Sulfate (Oramorph Sr) 15 mg Q6HR PO 03/08/17 12:00 03/11/17 08:14 Acetaminophen (Tylenol) 500 mg Q6H PRN PO headache 03/09/17 15:00 03/09/17 15:54 Sodium Chloride ([place]) 2 spray Q4H PRN EACH NARE NASAL CONGESTION/Dryness 03/09/17 16:15 03/09/17 20:42 Albuterol/ Ipratropium (Duoneb Neb) 1 ampule Q6HR WHILE AWAKE NEB NEB 03/10/17 20:00 03/10/17 20:14 Lactated Ringer's 1,000 ml @ 30 mls/hr Q24H PRN IV SEE LABEL COMMENTS 03/10/17 23:45 03/13/17 23:44 03/11/17 10:00 Tranexamic Acid 415 mg/Sodium Chloride 104.15 ml @ 200 mls/ hr UNSCH IV 03/11/17 11:00 03/11/17 17:00 03/11/17 12:46 Objective Remarks GENERAL: somnolent female, lying supine on hospital stretcher, undergoing EKG SKIN: Warm and dry. HEAD: Normocephalic. EYES: No injection or drainage. NECK: Supple, trachea midline. CARDIOVASCULAR: IRR RESPIRATORY: anterior martinez clear. on O2 via NC GASTROINTESTINAL: Abdomen soft, non-tender, nondistended. EXTREMITIES: No cyanosis. left hip with clean bandages in place, hip brace in place. MUSCULOSKELETAL: Adequate muscle tone. NEUROLOGICAL: awake but somnolent. Assessment/Plan Problem List: (1) Pancytopenia ICD Codes: D61.818 - Other pancytopenia Plan: --d/t liver cirrhosis + splenomegaly --transfuse as needed --will given Neupogen as needed for ANC<1.5 (2) Hip fracture ICD Codes: S72.009A - Fracture of unspecified part of neck of unspecified femur , initial encounter for closed fracture Plan: -- Ortho following --s/p left hip revision bipolar arthroplasty on 03/11 (3) Liver disease, chronic ICD Codes: K76.9 - Liver disease, unspecified Plan: -- h/o hep c, reportedly tx in past. (4) Iron deficiency ICD Codes: E61.1 - Iron deficiency Plan: --s/p IV iron from 03/09-03/11 Assessment 61 y/o female with history of liver disease admitted for hip fracture; hematology consulted for pancytopenia Plan 1. monitor CBC 2. transfuse as needed. 3. monitor ANC, no Neupogen needed at this time. Attending Statement The exam, history, and the medical decision-making described in the above note were completed with the assistance of the mid-level provider. I reviewed and agree with the findings presented. I attest that I had a [id number] encounter with the patient on the same day, and personally performed and documented my assessment and findings in the medical record Patricia Delacruz Mar 11, 2017 14:12 Lamine Figueroa MD Mar 11, 2017 20:47
[2017-03-11] MEDS ORDERED: DILTIAZEM 125 MG/NS 100 ML IV PRN ×2 (15:00)
[2017-03-11] MEDS ORDERED: Post-op Orders (for Pharmacy) XX ONE (16:00)
[2017-03-11] MEDS ORDERED: SENNOSIDES 8.6 MG TAB PO PRN (16:00)
[2017-03-11] MEDS ORDERED: BISACODYL 10 MG SUPP RECTAL PRN (16:00)
[2017-03-11] MEDS ORDERED: SODIUM CHLORIDE 0.9% FLUSH 10 ML FLUSH IV FLUSH PRN (16:00)
[2017-03-11] MEDS ORDERED: MAGNESIUM HYDROXIDE SUSP 30 ML CUP PO PRN (16:00)
[2017-03-11] MEDS ORDERED: LACTULOSE SYRUP 20 GM/30 ML CUP PO PRN (16:00)
[2017-03-11] MEDS ORDERED: *morphine SULFATE 10 MG/ML PERIprocedure ONLY ONE (16:10)
--- NOTE | 2017-03-11 16:44 | RADRPT ---
EXAM DATE/TIME: 03/11/2017 16:09 [facility] COMPARISON: No previous studies available for comparison. INDICATIONS : Evaluate Left hip hardware placement MEDICAL HISTORY : Chronic obstructive pulmonary disease. SURGICAL HISTORY : None. ENCOUNTER: Initial ACUITY: 1 day PAIN SCORE: 0/10 LOCATION: Left Hip FINDINGS: There is placement of a total left hip prosthesis which appears to be well-seated with intact pelvis. Degenerative changes of the lumbar spine are noted. CONCLUSION: Well seated left total hip prosthesis. Intact pelvis. Oleg Talley MD on March 11, 2017 at 16:40 Board Certified Radiologist. This report was verified electronically.
--- NOTE | 2017-03-11 18:34 | HHI.PR ---
Subjective Remarks Went for Left Hip revision. Still wheezing. On O2 2 L.. Went into Atrial Fib RVR. Objective Vital Signs Date Time Temp Pulse Resp B/P (MAP) Pulse Ox O2 Delivery O2 Flow Rate FiO2 03/11/17 15:00 97.5 97 16 90/62 (71) 97 Nasal Cannula 2 03/11/17 14:45 98 16 93/68 (76) 96 Nasal Cannula 2 03/11/17 14:35 103 92/57 03/11/17 14:30 104 16 98/65 (76) 96 Nasal Cannula 2 03/11/17 14:15 115 16 100/70 (80) 96 Nasal Cannula 2 03/11/17 14:00 96.5 119 17 104/69 (81) 95 Nasal Cannula 2 03/11/17 13:45 123 17 103/74 (84) 100 Nasal Cannula 3 03/11/17 13:36 96.6 121 20 101/72 (82) 99 Nasal Cannula 3 03/11/17 08:00 98.3 76 18 109/65 (80) 97 03/11/17 07:35 Nasal Cannula 3.00 03/11/17 04:05 97.3 85 18 124/72 (89) 94 03/10/17 23:34 97.6 86 18 104/62 (76) 95 03/10/17 20:16 98 Nasal Cannula 3.00 03/10/17 20:11 98.7 89 17 103/57 (72) 97 03/10/17 19:30 Nasal Cannula 3.00 I/O 03/10/17 03/10/17 03/10/17 03/11/17 03/11/17 03/11/17 07:00 15:00 23:00 07:00 15:00 23:00 Intake Total 720 ml 960 ml 480 ml 480 ml 1200 ml Output Total 75 ml Balance 720 ml 960 ml 480 ml 480 ml 1125 ml Intake Oral 720 ml 600 ml 480 ml 480 ml IV Total 360 ml Other 1200 ml Estimated Blood Loss 75 ml # Voids 6 5 6 3 1 # Bowel Movements 1 0 2 1 Result Diagram: 03/11/1733803/11/17338 Objective Remarks IN GENERAL: This thinly built middle-aged white female, pale, alert, and mom mildly dyspneic at rest. HEAD, EYES, EARS, NOSE, AND THROAT: Head normocephalic. Pupils are reactive and equal. Tongue is dry. Throat is clear. Neck no mass or lymphadenopathy. CHEST: Equal movements with expiratory wheezes scattered throughout both lung martinez. Prolonged expirations with occ wheeze CARDIAC: Heart sounds are regular S1-S2. No murmur. No S3. ABDOMEN: The abdomen is soft, non sounds. Soft with no organomegaly. There is mild tenderness in the upper abdomen and bowel sounds active. EXTREMITIES: Edema 1+ of legs redness of the skin of the lower extremities diminished peripheral pulses. No calf tenderness in. Reflexes are 1+. The patient has some restriction to the left leg and hip peripheral pulses are not well felt. NEUROLOGIC: The patient is alert and oriented and cooperative. SKIN: Skin was dry and scaly. Assessment and Plan Assessment and Plan IMPRESSION 1. COPD with acute exacerbation 2. He has degenerative arthritis of the left hip. 3. Leg edema. 4. Microcytic anemia. 5. Cirrhosis of the liver. 6. Thrombocytopenia. Plan : 1. O2 at 2 L. 2. Will Add Spiriva , 1 Cap daily 3. Stop Duoneb Nebs . 4. Cont IS q2h, bedside 5. PFT in am. 6. D/C solumedrol 7. Add Prednisone 10 mg bid. 8. Control HR and Rythm. Tao Lozano MD Mar 11, 2017 18:34
[2017-03-11] MEDS ORDERED: MAGNESIUM SULFATE 1 GM PREMIX 100 ML IV ONE (20:45)
[2017-03-11] MEDS: DOCUSATE SODIUM 50 MG/SENNA 8.6 MG TAB PO SCH (21:00)
[2017-03-11] MEDS ORDERED: RESP: IPRATROPIUM 0.5 MG/2.5 ML NEB NEB PRN (21:00)
[2017-03-11] MEDS: predniSONE 10 MG TAB PO SCH (21:00)
[2017-03-11] MEDS ORDERED: SODIUM CHLORIDE 0.9% FLUSH 10 ML FLUSH IV FLUSH SCH (21:00)
[2017-03-11] MEDS: MAGNESIUM SULFATE 1 GM PREMIX 100 ML IV SCH ×2 (23:02→23:04)
[2017-03-12] VITALS (21 sets, daily range): BP systolic 92–117; BP diastolic 56–82; PULSE 86–138; RESP 18–20; TEMP 98–98.9; O2SAT 94–100
[2017-03-12] MEDS: RIVAROXABAN 10 MG TAB PO SCH (02:51)
[2017-03-12 05:37] LABS: AUTOMATED NEUTROPHIL # 8.8 TH/MM3 (1.8-7.7); BASOPHIL % 0.1 % (0.0-2.0); HEMATOCRIT 26.8 % (35.0-46.0); HEMOGLOBIN 8.4 GM/DL (11.6-15.3); LYMPH % 1.1 % (9.0-44.0); LYMPHOCYTE # 0.1 TH/MM3 (1.0-4.8); MEAN CELL VOLUME 69.7 FL (80.0-100.0); MEAN CORPUSCULAR HEMOGLOBIN 21.7 PG (27.0-34.0); MEAN CORPUSCULAR HGB CONC 31.2 % (32.0-36.0); MEAN PLATELET VOLUME 9.9 FL (7.0-11.0); MONO % 9.8 % (0.0-8.0); PLATELET COUNT 126 TH/MM3 (150-450); RED BLOOD COUNT 3.85 MIL/MM3 (4.00-5.30); RED CELL DISTRIBUTION WIDTH 21.9 % (11.6-17.2); WHITE BLOOD COUNT 9.9 TH/MM3 (4.0-11.0)
[2017-03-12] MEDS: MORPHINE SULFATE 15 MG CONTROLLED RELEASE TAB PO SCH (05:53)
[2017-03-12] MEDS: AZITHROMYCIN INJ 250 MG in SODIUM CHLOR 0.9% 250 ML INJ 250 ML IV SCH (08:00)
[2017-03-12] MEDS: TIOTROPIUM BROMIDE 18 MCG INH INH SCH (08:31)
[2017-03-12] MEDS: RIFAXIMIN 550 MG TAB PO SCH ×2 (08:32→21:28)
[2017-03-12] MEDS: THIAMINE HCL 100 MG TAB PO SCH (08:32)
[2017-03-12] MEDS: NICOTINE 14 MG/24 HR PATCH T-DERMAL SCH (08:32)
[2017-03-12] MEDS: predniSONE 10 MG TAB PO SCH ×2 (08:33→21:03)
[2017-03-12] MEDS: PANTOPRAZOLE SOD 20 MG DELAYED RELEASE TAB PO SCH (08:33)
[2017-03-12] MEDS: SPIRONOLACTONE 50 MG TAB PO SCH (08:33)
[2017-03-12] MEDS: FUROSEMIDE 40 MG/4 ML VIAL IV PUSH SCH (08:33)
[2017-03-12] MEDS: REMOVE OLD PATCH T-DERMAL SCH (08:34)
[2017-03-12] MEDS: DOCUSATE SODIUM 50 MG/SENNA 8.6 MG TAB PO SCH ×2 (08:34→18:56)
[2017-03-12] MEDS: BUDESONIDE-FORMOTEROL 160/4.5 MCG INHALER INH SCH ×2 (08:34→21:06)
[2017-03-12] MEDS: SODIUM CHLORIDE 0.9% FLUSH 10 ML FLUSH IV FLUSH SCH ×2 (08:34→21:04)
--- NOTE | 2017-03-12 12:33 | HHI.DS ---
Discharge Summary Admission Date Mar 07, 2017 at 10:18 Discharge Date: Mar 13, 2017 Admitting Diagnosis left hip bipolar instability Diagnosis: (1) Instability of left hip joint Diagnosis: Principal ICD Codes: M25.352 - Other instability, left hip Procedures left hip bipolar revision arthroplasty Brief History This is a 61 year old female patient CBC/BMP: 03/12/17 0430 03/11/17 0339 Significant Findings Laboratory Tests Test 03/09/17 13:00 03/10/17 08:12 03/10/17 16:04 03/11/17 03:39 Hemoglobin 9.3 GM/DL (11.6-15.3) 9.2 GM/DL (11.6-15.3) 9.2 GM/DL (11.6-15.3) Hematocrit 31.8 % (35.0-46.0) 30.4 % (35.0-46.0) 29.1 % (35.0-46.0) Mean Corpuscular Volume 70.6 FL (80.0-100.0) 69.5 FL (80.0-100.0) 69.3 FL (80.0-100.0) Mean Corpuscular Hemoglobin 20.8 PG (27.0-34.0) 21.0 PG (27.0-34.0) 21.8 PG (27.0-34.0) Mean Corpuscular Hemoglobin Concent 29.4 % (32.0-36.0) 30.2 % (32.0-36.0) 31.5 % (32.0-36.0) Red Cell Distribution Width 22.0 % (11.6-17.2) 21.7 % (11.6-17.2) 21.3 % (11.6-17.2) Platelet Count 144 TH/MM3 (150-450) 128 TH/MM3 (150-450) 111 TH/MM3 (150-450) Neutrophils (%) (Auto) 81.8 % (16.0-70.0) 92.4 % (16.0-70.0) 94.2 % (16.0-70.0) Lymphocytes (%) (Auto) 2.4 % (9.0-44.0) 2.6 % (9.0-44.0) 1.6 % (9.0-44.0) Monocytes (%) (Auto) 15.5 % (0.0-8.0) Lymphocytes # (Auto) 0.2 TH/MM3 (1.0-4.8) 0.2 TH/MM3 (1.0-4.8) 0.1 TH/MM3 (1.0-4.8) Monocytes # (Auto) 1.1 TH/MM3 (0-0.9) Neutrophils # (Auto) 8.7 TH/MM3 (1.8-7.7) Aspartate Amino Transf (AST/SGOT) 11 U/L (15-37) Potassium Level 2.7 MEQ/L (3.5-5.1) 3.3 MEQ/L (3.5-5.1) Chloride Level 95 MEQ/L (98-107) Carbon Dioxide Level 35.9 MEQ/L (21.0-32.0) 35.0 MEQ/L (21.0-32.0) Platelet Estimate LOW (NORMAL) Target Cells 1+ (NORMAL) Ovalocytes 1+ (NORMAL) Acanthocytes 1+ (NORMAL) Blood Urea Nitrogen 19 MG/DL (7-18) Creatinine 0.47 MG/DL (0.50-1.00) Random Glucose 113 MG/DL (74-106) Albumin 3.2 GM/DL (3.4-5.0) Test 03/12/17 04:30 Red Blood Count 3.85 MIL/MM3 (4.00-5.30) Hemoglobin 8.4 GM/DL (11.6-15.3) Hematocrit 26.8 % (35.0-46.0) Mean Corpuscular Volume 69.7 FL (80.0-100.0) Mean Corpuscular Hemoglobin 21.7 PG (27.0-34.0) Mean Corpuscular Hemoglobin Concent 31.2 % (32.0-36.0) Red Cell Distribution Width 21.9 % (11.6-17.2) Platelet Count 126 TH/MM3 (150-450) Neutrophils (%) (Auto) 89.0 % (16.0-70.0) Lymphocytes (%) (Auto) 1.1 % (9.0-44.0) Monocytes (%) (Auto) 9.8 % (0.0-8.0) Neutrophils # (Auto) 8.8 TH/MM3 (1.8-7.7) Lymphocytes # (Auto) 0.1 TH/MM3 (1.0-4.8) Monocytes # (Auto) 1.0 TH/MM3 (0-0.9) PE at Discharge Left Hip healed incision calves soft NVI Hospital Course The patient was taken to the operating room by the undersigned for the above procedures which she tolerated well. She extubated then transferred to PACU in stable condition. The patient was subsequently transferred to the icu for afib. The rest of his hospital stay was uneventful. She received adequate postoperative antibiotics. Her diet was advanced as tolerated and he had full return of bowel function as well as making adequate urine output. We were able to covert IV pain meds to po pain meds. The patient received adequate physical therapy during his stay in is being discharged with detailed physical therapy recommendations with [facility]. The patient was seen and examined on the day of discharge and found to be in stable condition. On Exam at discharge: Operative extremity was neurovascularly intact with dressing that was clean, dry and intact. postop plan: xarelto for 30 days, CKS at all times, abduction pillow in bed, abduction brace when OOB. Follow-up 10-[address] Webster @ orthopaedic clinic with a [place]. Pt Condition on Discharge: Good Discharge Disposition: Disch w/ Home Health Serv Discharge Instructions Diet Instructions: As Tolerated, No Restrictions Activities You Can Perform: Full Weight Bearing (posterior hip precautions) Activities to Avoid: Contact Sports, Lifting/Bending Alf Webster Jr., MD Mar 12, 2017 12:33
--- NOTE | 2017-03-12 12:36 | PD.ORT.PN ---
Subjective Subjective Remarks doing well. pain issues. no complaints. no wearing CKS Objective Vitals Vital Signs Date Time Temp Pulse Resp B/P (MAP) Pulse Ox O2 Delivery O2 Flow Rate FiO2 03/12/17 12:01 106 03/12/17 11:01 98.1 109 18 99/66 (77) 98 03/12/17 11:00 103 03/12/17 10:00 138 03/12/17 09:00 122 03/12/17 08:30 98.0 94 18 114/81 (92) 94 03/12/17 08:30 94 Nasal Cannula 3.00 03/12/17 08:18 99 Nasal Cannula 2.00 03/12/17 08:00 106 03/12/17 07:01 108 03/12/17 07:00 18 03/12/17 03:00 98.9 125 20 105/66 (79) 95 03/11/17 23:03 101 94/60 03/11/17 23:00 98.4 101 22 94/60 (71) 96 03/11/17 22:00 97 18 99/68 (78) 96 03/11/17 21:45 85/69 (74) 03/11/17 21:30 93 20 94/61 (72) 96 03/11/17 21:00 105 22 115/75 (88) 97 03/11/17 20:30 99 20 96/62 (73) 96 03/11/17 20:04 Nasal Cannula 2.00 03/11/17 20:00 98.2 98 18 111/65 (80) 96 03/11/17 19:20 98.2 96 16 103/57 (72) 97 Nasal Cannula 2 03/11/17 19:00 96 Nasal Cannula 2.00 03/11/17 18:30 92 15 97/63 (74) 97 Nasal Cannula 2 03/11/17 18:00 91 15 92/55 (67) 97 Nasal Cannula 2 03/11/17 17:30 100 16 90/62 (71) 97 Nasal Cannula 2 03/11/17 17:00 103 16 96/58 (71) 96 Nasal Cannula 2 03/11/17 16:30 102 16 92/56 (68) 96 Nasal Cannula 2 03/11/17 16:15 15 03/11/17 16:00 102 16 101/58 (72) 97 Nasal Cannula 2 03/11/17 15:30 100 16 91/63 (72) 97 Nasal Cannula 2 03/11/17 15:00 97.5 97 16 90/62 (71) 97 Nasal Cannula 2 03/11/17 14:45 98 16 93/68 (76) 96 Nasal Cannula 2 03/11/17 14:35 103 92/57 03/11/17 14:30 104 16 98/65 (76) 96 Nasal Cannula 2 03/11/17 14:15 115 16 100/70 (80) 96 Nasal Cannula 2 03/11/17 14:00 96.5 119 17 104/69 (81) 95 Nasal Cannula 2 03/11/17 13:45 123 17 103/74 (84) 100 Nasal Cannula 3 03/11/17 13:36 96.6 121 20 101/72 (82) 99 Nasal Cannula 3 I/O 03/11/17 03/11/17 03/11/17 03/12/17 03/12/17 03/12/17 07:00 15:00 23:00 07:00 15:00 23:00 Intake Total 480 ml 1200 ml 120 ml 1015 ml Output Total 75 ml Balance 480 ml 1125 ml 120 ml 1015 ml Intake Oral 480 ml 120 ml 600 ml IV Total 415 ml Other 1200 ml Estimated Blood Loss 75 ml # Voids 3 1 0 4 # Bowel Movements 1 4 Result Diagram: 03/12/17 0430 03/11/17 0339 Imaging Last 24 hours Impressions Lower Extremity Ultrasound 03/07/17 1108 Signed Impressions: Service Date/Time: February 11:24 - CONCLUSION: No evidence of deep venous thrombosis. Dwayne Armas MD Chest X-Ray 03/07/17 1047 Signed Impressions: Service Date/Time: February 11:00 - CONCLUSION: No acute disease. Dwayne Armas MD Procedures left hip bipolar revision arthroplasty Objective Remarks aaox3. nad LLE: CKS off, nvi. dressing CDI. SILT distally, negative homans Assessment & Plan Problem List: (1) Instability of left hip joint ICD Codes: M25.352 - Other instability, left hip Assessment and Plan POD1- left hip bipolar revision Doing well postop abx pain meds adjusted xarelto q day no dressing changes CKS at all times, abduction pillow in bed, hip abduction brace when OOB at home dc with [facility] tomorrow Alf Webster Jr., MD Mar 12, 2017 12:36
--- NOTE | 2017-03-12 12:38 | HHI.FF ---
Face to Face Verification Diagnosis: (1) Instability of left hip joint Physical Therapy Gait training Hip: Total hip, Protocol: Left, Posterior hip precautions Canvas Knee Splint: At all times Left LE Weight Bearing: WB as tolerated Left LE Range of Motion: Passive ROM S/P Spinal Fusion: Gait training with walker Additional Instructions xarelto q day no dressing changes CKS at all times, abduction pillow in bed, hip abduction brace when OOB at home Nursing RN: 3 days/week x 2 weeks I have seen patient Ling Tam on 03/12/17. My clinical findings support the need for the requested home health care services because: Ltd mobility - disease progression Patient has SOB Deconditioned w/ increased weakness I certify that my clinical findings support that this patient is homebound because: Post-op weakness Unsteady gait/balance Alf Webster Jr., MD Mar 12, 2017 12:38
[2017-03-12] MEDS: MORPHINE SULFATE 30 MG CONTROLLED RELEASE TAB PO PRN ×2 (12:42→18:39)
[2017-03-12] MEDS ORDERED: PILL SPLITTER OTHER PRN (13:30)
[2017-03-12] MEDS ORDERED: METOPROLOL TARTRATE 25 MG TAB PO SCH ×2 (14:00→22:00)
[2017-03-12] MEDS: MORPHINE SULFATE 15 MG CONTROLLED RELEASE TAB PO PRN ×2 (15:56→21:04)
--- NOTE | 2017-03-12 16:48 | HHI.PR ---
Subjective Remarks Follow up for Afib, s/p hip revision. Patient is doing well. No chest pain shortness of breath, fever, chills. Objective Vitals Vital Signs Date Time Temp Pulse Resp B/P (MAP) Pulse Ox O2 Delivery O2 Flow Rate FiO2 03/12/17 15:26 98.3 98 18 96/66 (76) 97 03/12/17 15:01 105 03/12/17 14:00 102 03/12/17 13:00 106 03/12/17 12:01 106 03/12/17 11:01 98.1 109 18 99/66 (77) 98 03/12/17 11:00 103 03/12/17 10:00 138 03/12/17 09:00 122 03/12/17 08:30 98.0 94 18 114/81 (92) 94 03/12/17 08:30 94 Nasal Cannula 3.00 03/12/17 08:18 99 Nasal Cannula 2.00 03/12/17 08:00 106 03/12/17 07:01 108 03/12/17 07:00 18 03/12/17 03:00 98.9 125 20 105/66 (79) 95 03/11/17 23:03 101 94/60 03/11/17 23:00 98.4 101 22 94/60 (71) 96 03/11/17 22:00 97 18 99/68 (78) 96 03/11/17 21:45 85/69 (74) 03/11/17 21:30 93 20 94/61 (72) 96 03/11/17 21:00 105 22 115/75 (88) 97 03/11/17 20:30 99 20 96/62 (73) 96 03/11/17 20:04 Nasal Cannula 2.00 03/11/17 20:00 98.2 98 18 111/65 (80) 96 03/11/17 19:20 98.2 96 16 103/57 (72) 97 Nasal Cannula 2 03/11/17 19:00 96 Nasal Cannula 2.00 03/11/17 18:30 92 15 97/63 (74) 97 Nasal Cannula 2 03/11/17 18:00 91 15 92/55 (67) 97 Nasal Cannula 2 03/11/17 17:30 100 16 90/62 (71) 97 Nasal Cannula 2 03/11/17 17:00 103 16 96/58 (71) 96 Nasal Cannula 2 I/O 03/11/17 03/11/17 03/11/17 03/12/17 03/12/17 03/12/17 07:00 15:00 23:00 07:00 15:00 23:00 Intake Total 480 ml 1200 ml 120 ml 1015 ml 250 ml Output Total 75 ml Balance 480 ml 1125 ml 120 ml 1015 ml 250 ml Intake Oral 480 ml 120 ml 600 ml IV Total 415 ml 250 ml Other 1200 ml Estimated Blood Loss 75 ml # Voids 3 1 0 4 # Bowel Movements 1 4 Result Diagram: 03/12/17 0430 03/11/17 0339 Objective Remarks GENERAL: Alert, Oriented x 3, NAD. SKIN: Warm and dry. HEAD: Normocephalic. EYES: No scleral icterus. No injection or drainage. NECK: Supple, trachea midline. No JVD or lymphadenopathy. CARDIOVASCULAR: Irreg Irreg without murmurs, gallops, or rubs. RESPIRATORY: Breath sounds equal bilaterally. No accessory muscle use. GASTROINTESTINAL: Abdomen soft, non-tender, nondistended. MUSCULOSKELETAL: No cyanosis, or edema. BACK: Nontender without obvious deformity. No CVA tenderness. Procedures Echo 03/08/2017 Normal left ventricular size. Wall thickness is normal. The left ventricular systolic function is low normal with an estimated ejection fraction in the range of 50- 55%. Mitral annular calcification is present. Mild mitral valve regurgitation. The pulmonary valve is not well visualized. A/P Problem List: (1) Instability of left hip joint ICD Code: M25.352 - Other instability, left hip (2) COPD exacerbation ICD Code: J44.1 - Chronic obstructive pulmonary disease with (acute) exacerbation Assessment and Plan Ms. Tam is a pleasant 61 year old female with a history of COPD, liver cirrhosis who was admitted to the hospital due to revision of hip surgery. Patient was evaluated by heme/onc, Pulmonary and hospitalist service for medical clearance prior to surgery. She underwent left hip revision on 2017. Post operatively she developed Afib. - Left hip joint instability - s/p left hip revision - Continue Morphine SR PRN. - Bowel regimen. - Per orthopedic surgery, possible discharge 03/13/2017 with [facility]. - COPD exacerbation - Continue Symbicort, prednisone. Suppl O2 to keep O2 sat > 90%. - Ipratropium Neb treatments. - Continue Prednisone 10mg BID started by pulmonology. - Atrial fibrillation - Patient is still in Afib which indicates possibility of undiagnosed paroxysmal afib. - Diltiazem drip discontinued today. - Will continue Diltiazem 30mg Q6hrs and change metoprolol from 12.5mg Q8 to Metoprolol 25mg BID. - [id number] score 1 (Female). We can likely continue Aspirin 81mg after orthopedic anticoagulation is completed. - Liver cirrhosis - Continue lasix, Spironolactone. Hold lasix if BP < 100 systolic. - Pancytopenia - Hematology following. Likely due to cirrhosis and splenomegaly. Full code. Xarelto for DVT prophylaxis. Magda German DO Mar 12, 2017 16:48
[2017-03-12] MEDS: DILTIAZEM HCL 30 MG TAB PO SCH (18:09)
--- NOTE | 2017-03-12 19:16 | EKG ---
Date Performed: 03/11/2017 Time Performed: 14:04:50 PTAGE: 61 years EKG: ATRIAL FIBRILLATION WITH RAPID VENTRICULAR RESPONSE When compared to previous tracing, the patient has developed Atrial fibrillation with a rapid ventricular response. The anterolateral ST nora vation is new, but nonspecific. Clinical corrolation will be important. ABNORMAL RHYTHM ECG PREVIOUS TRACING : 03/07/2017 11.33 DOCTOR: Mirta Dupree Interpretating Date/Time 03/12/2017 19:15:29
--- NOTE | 2017-03-12 19:38 | HHI.PR ---
Subjective Remarks Went for Left Hip revision.Less wheezing. On O2 2 L.. in sinus Rythm. Objective Vital Signs Date Time Temp Pulse Resp B/P (MAP) Pulse Ox O2 Delivery O2 Flow Rate FiO2 03/12/17 18:02 86 20 117/82 (94) 100 03/12/17 17:01 96 03/12/17 16:00 100 03/12/17 15:26 98.3 98 18 96/66 (76) 97 03/12/17 15:01 105 03/12/17 14:00 102 03/12/17 13:00 106 03/12/17 12:01 106 03/12/17 11:01 98.1 109 18 99/66 (77) 98 03/12/17 11:00 103 03/12/17 10:00 138 03/12/17 09:00 122 03/12/17 08:30 98.0 94 18 114/81 (92) 94 03/12/17 08:30 94 Nasal Cannula 3.00 03/12/17 08:18 99 Nasal Cannula 2.00 03/12/17 08:00 106 03/12/17 07:01 108 03/12/17 07:00 18 03/12/17 03:00 98.9 125 20 105/66 (79) 95 03/11/17 23:03 101 94/60 03/11/17 23:00 98.4 101 22 94/60 (71) 96 03/11/17 22:00 97 18 99/68 (78) 96 03/11/17 21:45 85/69 (74) 03/11/17 21:30 93 20 94/61 (72) 96 03/11/17 21:00 105 22 115/75 (88) 97 03/11/17 20:30 99 20 96/62 (73) 96 03/11/17 20:04 Nasal Cannula 2.00 03/11/17 20:00 98.2 98 18 111/65 (80) 96 I/O 03/11/17 03/11/17 03/11/17 03/12/17 03/12/17 03/12/17 07:00 15:00 23:00 07:00 15:00 23:00 Intake Total 480 ml 1200 ml 120 ml 1015 ml 250 ml 600 ml Output Total 75 ml 850 ml Balance 480 ml 1125 ml 120 ml 1015 ml 250 ml -250 ml Intake Oral 480 ml 120 ml 600 ml 600 ml IV Total 415 ml 250 ml Other 1200 ml Output Urine Total 850 ml Estimated Blood Loss 75 ml # Voids 3 1 0 4 4 # Bowel Movements 1 4 5 Result Diagram: 03/12/17 0430 03/11/17 0339 Objective Remarks IN GENERAL: This thinly built middle-aged white female, pale, alert, and mom mildly dyspneic at rest. HEAD, EYES, EARS, NOSE, AND THROAT: Head normocephalic. Pupils are reactive and equal. Tongue is dry. Throat is clear. Neck no mass or lymphadenopathy. CHEST: Equal movements with expiratory wheezes scattered over both lung martinez. Prolonged expirations with occ crackles . CARDIAC: Heart sounds are Irregular S1-S2. No murmur. No S3. ABDOMEN: The abdomen is soft, non sounds. Soft with no organomegaly. There is mild tenderness in the upper abdomen and bowel sounds active. EXTREMITIES: Edema 1+ of legs redness of the skin of the lower extremities diminished peripheral pulses. No calf tenderness in. Reflexes are 1+. The patient has some restriction to the left leg and hip peripheral pulses are not well felt. NEUROLOGIC: The patient is alert and oriented and cooperative. SKIN: Skin was dry and scaly. Assessment and Plan Assessment and Plan IMPRESSION 1. COPD with acute exacerbation 2. He has degenerative arthritis of the left hip. 3. Leg edema. 4. Microcytic anemia. 5. Cirrhosis of the liver. 6. Thrombocytopenia. Plan : 1. O2 at 2 L. 2. Will Add Spiriva , 1 Cap daily 3. Stop Duoneb Nebs . 4. Cont IS q2h, bedside 5. PFT in am. 6. D/C solumedrol 7. Add Prednisone 10 mg bid. 8. Control HR and Rythm. Tao Lozano MD Mar 12, 2017 19:38
[2017-03-12] MEDS ORDERED: ASPI81TA23 PO (20:41)
[2017-03-12] MEDS ORDERED: CARD120C4 PO (20:41)
[2017-03-12] MEDS ORDERED: METO25TA3 PO (20:41)
[2017-03-12] MEDS: SODIUM CHLORIDE 0.9% FLUSH 10 ML FLUSH IV FLUSH PRN (21:04)
[2017-03-12] MEDS: METOPROLOL TARTRATE 25 MG TAB PO SCH (22:00)
[2017-03-13] VITALS (12 sets, daily range): BP systolic 87–102; BP diastolic 58–78; PULSE 86–108; RESP 16–24; TEMP 97–98.7; O2SAT 90–98
[2017-03-13] MEDS: DILTIAZEM HCL 30 MG TAB PO SCH ×3 (00:41→12:03)
[2017-03-13] MEDS: MORPHINE SULFATE 30 MG CONTROLLED RELEASE TAB PO PRN ×2 (00:41→06:36)
[2017-03-13] MEDS: RIVAROXABAN 10 MG TAB PO SCH (02:30)
[2017-03-13] MEDS ORDERED: MORPHINE SULFATE 2 MG/ML INJ IV PUSH ONE (05:15)
[2017-03-13] MEDS: SODIUM CHLORIDE 0.9% FLUSH 10 ML FLUSH IV FLUSH PRN (05:15)
--- NOTE | 2017-03-13 08:30 | HHI.PR ---
Subjective Remarks Follow up for Afib, s/p hip revision. Patient is currently doing well. Ambulating. No CP, SOB, fever, chills. Objective Vitals Vital Signs Date Time Temp Pulse Resp B/P (MAP) Pulse Ox O2 Delivery O2 Flow Rate FiO2 03/13/17 06:31 103 102/67 (79) 03/13/17 04:54 99 102/69 (80) 03/13/17 04:14 86 03/13/17 03:08 98.5 96 16 90/64 (73) 98 03/13/17 00:40 108 100/69 (79) 03/13/17 00:37 98.0 107 18 95/78 (84) 98 03/13/17 00:18 93 03/12/17 22:59 95 Nasal Cannula 3.50 03/12/17 22:39 Nasal Cannula 3.00 03/12/17 22:34 99 92/56 (68) 03/12/17 20:48 98.7 90 18 99/70 (80) 94 03/12/17 19:58 103 03/12/17 18:02 86 20 117/82 (94) 100 03/12/17 17:01 96 03/12/17 16:00 100 03/12/17 15:26 98.3 98 18 96/66 (76) 97 03/12/17 15:01 105 03/12/17 14:00 102 03/12/17 13:00 106 03/12/17 12:01 106 03/12/17 11:01 98.1 109 18 99/66 (77) 98 03/12/17 11:00 103 03/12/17 10:00 138 03/12/17 09:00 122 03/12/17 08:30 98.0 94 18 114/81 (92) 94 03/12/17 08:30 94 Nasal Cannula 3.00 I/O 03/12/17 03/12/17 03/12/17 03/13/17 03/13/17 03/13/17 07:00 15:00 23:00 07:00 15:00 23:00 Intake Total 1015 ml 250 ml 600 ml 240 ml Output Total 850 ml Balance 1015 ml 250 ml -250 ml 240 ml Intake Oral 600 ml 600 ml 240 ml IV Total 415 ml 250 ml Output Urine Total 850 ml # Voids 4 5 1 # Bowel Movements 4 5 1 Result Diagram: 03/12/17 0430 03/11/17 0339 Objective Remarks GENERAL: Alert, Oriented x 3, NAD. SKIN: Warm and dry. HEAD: Normocephalic. EYES: No scleral icterus. No injection or drainage. NECK: Supple, trachea midline. No JVD or lymphadenopathy. CARDIOVASCULAR: Irreg Irreg without murmurs, gallops, or rubs. RESPIRATORY: Breath sounds equal bilaterally. No accessory muscle use. GASTROINTESTINAL: Abdomen soft, non-tender, nondistended. MUSCULOSKELETAL: No cyanosis, or edema. BACK: Nontender without obvious deformity. No CVA tenderness. Procedures Echo 03/08/2017 Normal left ventricular size. Wall thickness is normal. The left ventricular systolic function is low normal with an estimated ejection fraction in the range of 50- 55%. Mitral annular calcification is present. Mild mitral valve regurgitation. The pulmonary valve is not well visualized. A/P Problem List: (1) Instability of left hip joint ICD Code: M25.352 - Other instability, left hip (2) COPD exacerbation ICD Code: J44.1 - Chronic obstructive pulmonary disease with (acute) exacerbation Assessment and Plan Ms. Tam is a pleasant 61 year old female with a history of COPD, liver cirrhosis who was admitted to the hospital due to revision of hip surgery. Patient was evaluated by heme/onc, Pulmonary and hospitalist service for medical clearance prior to surgery. She underwent left hip revision on 2017. Post operatively she developed Afib. - Left hip joint instability - s/p left hip revision - Continue Morphine SR PRN. - Bowel regimen. - Per orthopedic surgery, possible discharge 03/13/2017 with [facility]. - COPD exacerbation - Continue Symbicort, prednisone. Suppl O2 to keep O2 sat > 90%. - Ipratropium Neb treatments. - Continue Prednisone 10mg BID started by pulmonology. - Atrial fibrillation - Patient is still in Afib which indicates possibility of undiagnosed paroxysmal afib. - Diltiazem drip discontinued. Currently on PO Cardizem and PO metoprolol. - Heart rate at rest reasonably controlled. Goal < 100. - Will continue Diltiazem 30mg Q6hrs and change metoprolol from 12.5mg Q8 to Metoprolol 25mg BID. - [id number] score 1 (Female). We can continue Aspirin 81mg after orthopedic anticoagulation is completed with Xarelto. - Encouraged patient to follow up with her PCP as well as make an appt with a Staff Development Educator. I will refer her to [facility] heart group. - Liver cirrhosis - Continue lasix, Spironolactone. Hold lasix if BP < 100 systolic. - Pancytopenia - Hematology following. Likely due to cirrhosis and splenomegaly. Full code. Xarelto for DVT prophylaxis. Patient can be discharged from medical standpoint. Magda German DO Mar 13, 2017 8:29 am
[2017-03-13] MEDS: SPIRONOLACTONE 50 MG TAB PO SCH (09:00)
[2017-03-13] MEDS: REMOVE OLD PATCH T-DERMAL SCH (09:00)
[2017-03-13] MEDS: NICOTINE 14 MG/24 HR PATCH T-DERMAL SCH (09:16)
[2017-03-13] MEDS: RIFAXIMIN 550 MG TAB PO SCH (09:16)
[2017-03-13] MEDS: SODIUM CHLORIDE 0.9% FLUSH 10 ML FLUSH IV FLUSH SCH (09:17)
[2017-03-13] MEDS: THIAMINE HCL 100 MG TAB PO SCH (09:17)
[2017-03-13] MEDS: predniSONE 10 MG TAB PO SCH (09:17)
[2017-03-13] MEDS: PANTOPRAZOLE SOD 20 MG DELAYED RELEASE TAB PO SCH (09:17)
[2017-03-13] MEDS: DOCUSATE SODIUM 50 MG/SENNA 8.6 MG TAB PO SCH (09:17)
[2017-03-13] MEDS: TIOTROPIUM BROMIDE 18 MCG INH INH SCH (09:18)
[2017-03-13] MEDS: BUDESONIDE-FORMOTEROL 160/4.5 MCG INHALER INH SCH (09:18)
[2017-03-13] MEDS: METOPROLOL TARTRATE 25 MG TAB PO SCH (09:24)
[2017-03-13] MEDS ORDERED: MORPHINE SULFATE 2 MG/ML INJ IM PRN (11:00)
[2017-03-13] MEDS ORDERED: MORPHINE SULFATE 15 MG TAB PO PRN (11:00)
--- NOTE | 2017-03-13 17:49 | HHI.PR ---
Subjective Remarks Went for Left Hip revision.She is doing better. On O2 3 L.. Wants to go home. Objective Vital Signs Date Time Temp Pulse Resp B/P (MAP) Pulse Ox O2 Delivery O2 Flow Rate FiO2 03/13/17 17:38 94 Nasal Cannula 3.50 03/13/17 16:31 97.0 89 18 93/58 (70) 94 03/13/17 09:30 97.5 103 16 87/63 (71) 93 03/13/17 09:26 98.7 103 24 87/63 (71) 90 03/13/17 09:00 98.2 03/13/17 06:31 103 102/67 (79) 03/13/17 04:54 99 102/69 (80) 03/13/17 04:14 86 03/13/17 03:08 98.5 96 16 90/64 (73) 98 03/13/17 00:40 108 100/69 (79) 03/13/17 00:37 98.0 107 18 95/78 (84) 98 03/13/17 00:18 93 03/12/17 22:59 95 Nasal Cannula 3.50 03/12/17 22:39 Nasal Cannula 3.00 03/12/17 22:34 99 92/56 (68) 03/12/17 20:48 98.7 90 18 99/70 (80) 94 03/12/17 19:58 103 03/12/17 18:02 86 20 117/82 (94) 100 I/O 03/12/17 03/12/17 03/12/17 03/13/17 03/13/17 03/13/17 07:00 15:00 23:00 07:00 15:00 23:00 Intake Total 1015 ml 250 ml 600 ml 240 ml Output Total 850 ml Balance 1015 ml 250 ml -250 ml 240 ml Intake Oral 600 ml 600 ml 240 ml IV Total 415 ml 250 ml Output Urine Total 850 ml # Voids 4 5 1 # Bowel Movements 4 5 1 Result Diagram: 03/12/17 0430 03/11/17 0339 Objective Remarks IN GENERAL: This thinly built middle-aged white female, pale, alert, and mom mildly dyspneic at rest. HEAD, EYES, EARS, NOSE, AND THROAT: Head normocephalic. Pupils are reactive and equal. Tongue is dry. Throat is clear. Neck no mass or lymphadenopathy. CHEST: Equal movements with expiratory wheezes scattered over both lung martinez. Prolonged expirations with occ crackles . CARDIAC: Heart sounds are Irregular S1-S2. No murmur. No S3. ABDOMEN: The abdomen is soft, non sounds. Soft with no organomegaly. There is mild tenderness in the upper abdomen and bowel sounds active. EXTREMITIES: Edema 1+ of legs .Diminished peripheral pulses. No calf tenderness in. Reflexes are 1+. The patient has some restriction to the left leg and hip peripheral pulses are not well felt. NEUROLOGIC: The patient is alert and oriented and cooperative. SKIN: Skin was dry and scaly. Assessment and Plan Assessment and Plan IMPRESSION 1. COPD with acute exacerbation 2. He has degenerative arthritis of the left hip. 3. Leg edema. 4. Microcytic anemia. 5. Cirrhosis of the liver. 6. Thrombocytopenia. Plan : 1. O2 at 2 L. 2.Cont Spiriva , 1 Cap daily 3. Albuterol nebs 2.5 mg tid prn. 4. Cont IS q2h, bedside 5.To rehab anytime 6. Prednisone 10 mg bid. 8. Up with help Tao Lozano MD Mar 13, 2017 17:49
[2017-03-13] MEDS ORDERED: MORPHINE SULFATE 15 MG CONTROLLED RELEASE TAB PO SCH (21:00)
== END 2017-03-13 18:53 | disposition home health service (06) | DRG 940 ==
LOC: HSDI 10:18 → N06B 15:29 → UNDODISIN 03-08 15:51 → HCPC 03-11 15:57 → HCIN 03-12 17:50
PROVIDERS: ADMIT Orthopaedic Surgery; ATTEND Orthopaedic Surgery
PROC: 0SPS0JZ Removal of Synthetic Substitute from Left Hip Joint, Femoral Surface, Open Approach (ICD-10-PCS; 2017-03-11)
PROC: 0SRS0JA Replacement of Left Hip Joint, Femoral Surface with Synthetic Substitute, Uncemented, Open Approach (ICD-10-PCS; principal; 2017-03-11 11:36)
DX: T84.021D Dislocation of internal left hip prosthesis, subsequent encounter (principal); J44.1 Chronic obstructive pulmonary disease with (acute) exacerbation; D61.818 Other pancytopenia; I50.9 Heart failure, unspecified; R16.1 Splenomegaly, not elsewhere classified; K70.30 Alcoholic cirrhosis of liver without ascites; F17.210 Nicotine dependence, cigarettes, uncomplicated; D50.9 Iron deficiency anemia, unspecified; B19.20 Unspecified viral hepatitis C without hepatic coma; R06.03 Acute respiratory distress; Y79.2 Prosthetic and other implants, materials and accessory orthopedic devices associated with adverse incidents; Y83.8 Other surgical procedures as the cause of abnormal reaction of the patient, or of later complication, without mention of misadventure at the time of the procedure; Z53.8 Procedure and treatment not carried out for other reasons; Z91.19 Patient's noncompliance with other medical treatment and regimen; Z87.01 Personal history of pneumonia (recurrent); E87.6 Hypokalemia; I34.0 Nonrheumatic mitral (valve) insufficiency; I48.91 Unspecified atrial fibrillation
CPT/HCPCS: 71045; 71250; 73502; 80048; 80053; 81001; 82728; 83540; 83550; 83735; 84100; 84132; 84466; 85007; 85025; 85027; 85610; 86850; 86900; 86901; 93005; 93306; 93970; 94060; 94150; 94640; 94664; 99211; C1776; C9290; G0463; J0456; J0690; J1100; J1580; J1756; J1940; J2250; J2270; J2405; J2930; J3370; J3475; J3480; J7050; J7120; J7512; L1830